=== PATIENT | male | born 1950 | race Caucasian/White ===

== ENCOUNTER 2017-03-23 06:49 | Inpatient (IN) | payer MEDICARE, BC, OTHER ==
[~2017-03-23] VITALS: Ht 170.2 cm; Wt 110.8 kg
[2017-03-23] MEDS ORDERED: MORPHINE SULFATE 4 MG/ML DISP.SYRIN. IV ONE ×2 (08:00→09:30)
[2017-03-23] MEDS ORDERED: KETOROLAC 30 MG/ML INJ. IV ONE (08:00)
[2017-03-23] MEDS ORDERED: methylPREDNISolone 4 MG TABLET. PO SCH ×3 (09:00→12:30)
--- NOTE | 2017-03-23 09:52 | PHYS DOC ---
Past Medical History Past Medical History: Other Additional Past Medical Histor: Chronic back pain,R)thumb fx and set. Past Surgical History: Other Additional Past Surgical Histo: Face reconstruction,Umb.hernia,facial preCA sites removed,Cysts on back. Alcohol Use: None Drug Use: None Adult General Chief Complaint Chief Complaint: BACK PAIN - NO INJURY HPI HPI Patient is a 67 year old presents with exacerbation of chronic back pain. is located than right. Pain is located primarily in the paralumbar region and radiates anteriorly to above the right knee. It is associated with painful gait but not motor weakness or loss of sensation, loss of bowel or bladder function.Patient's has been relatively well controlled with ibuprofen until 3 days ago when escalated significantly. He has required use or a cane or walker to get and is unable to stand walk more than 1-2 minutes at a time. She has had an extensive outpatient workup including recent MRI of his lumbar spine performed at [facility] in [place] and was evaluated by pipe bowl paint trimmer at [facility] and is awaiting an a appointment date for a scheduled epidural steroid injection. No other acute symptoms or complaints. Patient did arrive by ambulance. He was given 100 g of fentanyl on route.Patient is accompanied by spouse at bedside Review of Systems Review of Systems All other systems were reviewed and found to be within normal limits, except as documented in this note. Current Medications Current Medications Current Medications Medications (Trade) Dose Ordered Sig/Alex Start Time Stop Time Status Last Admin Dose Admin Ketorolac Tromethamine (Toradol) 30 mg 1X ONCE 03/23/17 08:00 03/23/17 08:01 DC 03/23/17 08:08 30 MG Morphine Sulfate 2 mg 1X ONCE 03/23/17 09:30 03/23/17 09:31 DC Allergies Allergies Allergies Coded Allergies Type Severity Reaction Last Updated Verified No Known Drug Allergies 03/23/17 No Physical Exam Physical Exam Constitutional: Well developed, well nourished, moderate distress secondary pain [] HENT: Normocephalic, atraumatic, bilateral external ears normal, oropharynx moist, no oral exudates, nose normal. [] Eyes: PERRLA, EOMI, conjunctiva normal, no discharge. [] Neck: Normal range of motion, no tenderness, supple, no stridor. [] Cardiovascular:Heart rate regular rhythm, no murmur [] Lungs & Thorax: Bilateral breath sounds clear to auscultation [] Abdomen: Bowel sounds normal, soft, no tenderness Back: No midline bony pain, swelling or bruising. Diffuse right lumbar back pain. [] Extremities: No tenderness, no cyanosis, no clubbing, ROM intact, no edema. [] Neurologic: Alert and oriented X 3,extremities, no motor weakness or loss of sensation appreciated. limited testing on right secondary to pain. Negative SLR tests. Current Patient Data Vital Signs Vital Signs Date Time Temp Pulse Resp B/P (MAP) Pulse Ox O2 Delivery O2 Flow Rate FiO2 03/23/17 08:06 14 97 Room Air 03/23/17 07:50 71 162/79 (106) 03/23/17 07:26 98.0 98.0 EKG EKG [] Radiology/Procedures Radiology/Procedures [] Course & Med Decision Making Course & Med Decision Making Pertinent Labs and Imaging studies reviewed. (See chart for details) [Intractable low back pain with radiculopathy. No motor deficits appreciated on exam. Outpatient MRI studies requested and are pending.patient requiring multiple of narcotic pain medications to control pain. Patient is not currently safe to discharge home due to concern of ability care for himself, fallen personal safety. Therefore the patient will be admitted to the hospitalist service with anticipated pain management consult.] Dragon Disclaimer Dragon Disclaimer This electronic medical record was generated, in whole or in part, using a voice recognition dictation system. Departure Departure Impression: Primary Impression: Intractable back pain Disposition: ADMITTED INPATIENT Admitting Physician: Other (Dr. Orr) Referrals: FELICIA REYES MD (PCP) CAMERON RAMIREZ DO Mar 23, 2017 09:52
[2017-03-23] MEDS ORDERED: ONDANSETRON PF 4 MG/2 ML VIAL. IV PRN (10:00)
[2017-03-23 10:22] LABS: BASO # 0.1 x10^3/uL (0.0-0.2); BASO % 1 % (0-3); EOS % 0 % (0-3); HEMATOCRIT 45.9 % (39.0-53.0); HEMOGLOBIN 15.5 g/dL (13.0-17.5); LYMPH # 1.3 x10^3/uL (1.0-4.8); LYMPH % 14 % (24-48); MEAN CORPUSCULAR HEMOGLOBIN 29 pg (25-35); MEAN CORPUSCULAR HGB CONC 34 g/dL (31-37); MEAN CORPUSCULAR VOLUME 86 fL (79-100); MONO % 9 % (0-9); NEUT % 76 % (31-73); PLATELET COUNT 186 x10^3/uL (140-400); RED BLOOD COUNT 5.37 x10^6/uL (4.30-5.70); RED CELL DISTRIBUTION WIDTH 14.8 % (11.5-14.5); WHITE BLOOD COUNT 9.7 x10^3/uL (4.0-11.0)
[2017-03-23 10:30] LABS: CALCIUM 9.3 mg/dL (8.5-10.1); CREATININE 0.6 mg/dL (0.7-1.3)
[2017-03-23 10:36] LABS: ALBUMIN 3.3 g/dL (3.4-5.0); ALBUMIN/GLOBULIN RATIO 0.8 (1.0-1.7); TOTAL BILIRUBIN 0.5 mg/dL (0.2-1.0); TOTAL PROTEIN 7.4 g/dL (6.4-8.2)
[2017-03-23 11:15] VITALS: BP 156/73
[2017-03-23] MEDS ORDERED: CHOL100013 PO (12:45)
[2017-03-23] MEDS ORDERED: GLUC100018 PO (12:45)
[2017-03-23] MEDS ORDERED: KETOROLAC 30 MG/ML INJ. IV PRN (13:45)
[2017-03-23] MEDS: CHOLECALCIFEROL (VITAMIN D3) 1,000 UNIT TABLET PO SCH (14:20)
[2017-03-23 15:00] VITALS: BP 148/70
[2017-03-23] MEDS: MORPHINE SULFATE 4 MG/ML DISP.SYRIN. IV PRN ×2 (15:43→22:39)
[2017-03-23 19:00] VITALS: BP 163/83
[2017-03-23] MEDS: PANTOPRAZOLE 40 MG TABLET.DR. PO SCH (19:00)
[2017-03-23] MEDS: GABAPENTIN 300 MG CAPSULE. PO SCH (20:18)
[2017-03-23] MEDS: oxyCODONE/APAP 10/325 1 TAB TABLET PO PRN (20:18)
[2017-03-23] MEDS: methylPREDNISolone 4 MG TABLET. PO SCH ×2 (20:19→22:43)
--- NOTE | 2017-03-23 21:51 | HP ---
ADMIT DATE: 03/23/2017 CHIEF COMPLAINT: Lower back pain with radiation into right leg. HISTORY OF PRESENT ILLNESS: The patient is a 67-year-old morbidly obese gentleman who presented to the Emergency Room with acute on chronic lower back pain. He relates that he has had issues for years. He sustained a fall in December, which actually brought on severe pain for which he had seen an orthopedic surgeon and had been prescribed physical therapy, which he had had for about 12 sessions. More acutely, about 3-4 days ago, his back pain once again became very severe. Nothing has seemed to help. He typically takes Motrin, did not do the trick this time and he decided to come to the Emergency Room. Of note, he actually had been seen by his orthopedist just a couple weeks ago and had been recommended to receive injections which at the time, he declined as he felt it was not that severe. PAST MEDICAL HISTORY: Chronic back pain as above. No medical issues. FAMILY HISTORY: No medical problems known to him. SOCIAL HISTORY: Lives with his . No toxic habits. ALLERGIES: No known drug allergies. MEDICATIONS: MAR reconciled with home medications. REVIEW OF SYSTEMS: Positive for back pain as above. Radiation with burning sensation into his groin and anterior thigh to knee. Rest of organ system review is negative. PHYSICAL EXAMINATION: VITAL SIGNS: Show blood pressure of 156/73, heart rate of 74, respiratory rate at 20. He is afebrile. GENERAL: This is a massively obese, 67-year-old gentleman, awake, alert, in mild distress, lying on his side as this seems most comfortable to him. HEENT: Shows no scleral icterus. NECK: Supple. LUNGS: Clear to auscultation bilaterally. HEART: Regular rate and rhythm. ABDOMEN: Has positive bowel sounds, obese. Organs could not be palpated. EXTREMITIES: Show no edema. He can move all extremities, albeit with pain in the right lower extremity. LABORATORY DATA: CBC with a WBC of 9.7, hemoglobin 15.5, platelets of 186. Chemistries with a BUN and creatinine of 17 and 0.6. Normal electrolytes and normal LFTs. Glucose at 111. ASSESSMENT AND PLAN: The patient is a 67-year-old gentleman with suspected nerve root compression and resultant sciatica. MRI of the spine will be obtained for elucidation. Dr. Lennon has been consulted, await further input. In the meantime, we will treat him symptomatically with pain medications. He has IV morphine and Toradol as well as oxycodone available. Adjunct ice therapy as well. We will add muscle relaxants to his regimen as well. CHASE NATH MD DR: UR/nts JOB#: [id number] / [id number] CHARISSE
[2017-03-23 23:00] VITALS: BP 135/76
[2017-03-24 03:50] VITALS: BP 134/61
[2017-03-24] MEDS: oxyCODONE/APAP 10/325 1 TAB TABLET PO PRN ×2 (04:25→09:26)
--- NOTE | 2017-03-24 04:43 | CONS ---
DATE OF CONSULTATION: 03/23/2017 LOCATION: He is in room 569. I saw him at the request of Dr. Mack for rehab evaluation about his back pain. HISTORY OF PRESENT ILLNESS: This is a 67-year-old male with chronic back pain, usually goes to a chiropractor. He started having increasing lower back pain after a fall in December of this year, had gone through physical therapy with some help, had an MRI scan done and he was referred to the pain clinic for consideration of lumbar epidural steroid injection, but he did not go to as he admits the pain at that time is only 07/18. The patient started having increasing back pain starting on 03/20/2017, after he picked up heavy box. The patient admits burning pain over right thigh anterior lateral aspect. He admits lower back pain is radiating to his right lower extremity. The patient had taken ibuprofen 400 mg couple of times a day without much help. Patient denies any trouble with his bowel or bladder control, but admits having difficulty to get up and walk. He required a cane or walker to get up, unable to walk for more than 1 or 2 minutes at a time. ALLERGIES: The patient is not known allergic to any medication. PAST MEDICAL HISTORY: Includes peripheral neuropathy. 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 The patient is retired. He lives with his family in [facility], had stairs to manage and he has been independent with his mobility and self-care skills prior to the present exacerbation of his lower back pain about 3 days ago. PHYSICAL EXAMINATION: Today, revealed a middle-aged male. He is alert, oriented to time, place, person, and circumstance, in moderate distress. He is having tenderness to palpation over lower thoracic and lumbar paraspinal muscles extending over to sacroiliac joint area, mainly on the right side. Straight leg raising test is negative bilaterally. He had pain free range of motion of all four extremity joints, some tightness of heel cords bilaterally. He had relative weakness of dorsiflexor muscles of both feet and toes. Deep tendon reflexes are 1+ at right knee, absent at left knee and both ankles. He had slight degree of hyperesthesia to touch over right lateral femoral cutaneous nerve distribution. Negative Tinel sign over right lateral femoral cutaneous nerve at the inguinal ligament area. He is independent, rolling from side to side. I have not tested his transfers or ambulation skills at this time, but nursing staff noted him walking to the bathroom. His skin is intact at this time. 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 He has slight tightening of heel cords bilaterally. The patient is obese. RECOMMENDATION: To start him on Medrol Dosepak and muscle relaxant medications and gabapentin to help with his right thigh dysesthesia. To obtain MRI scan of his lumbar vertebrae to determine any new disk herniation and to ask physical therapy to see him to consider trigger point injections or refer to pain clinic for consideration of lumbar epidural steroid injection if the pain persists. Dr. Mack, I appreciate asking me to participate in the care of this interesting patient. I will be glad to follow him with you as needed for his rehabilitation. LEOPOLDO MCNEILL MD DR: ARON/bjorn JOB#: [id number] / [id number]
[2017-03-24 06:27] LABS: BASO % 0 % (0-3); EOS % 0 % (0-3); HEMATOCRIT 46.1 % (39.0-53.0); HEMOGLOBIN 15.6 g/dL (13.0-17.5); LYMPH # 1.2 x10^3/uL (1.0-4.8); LYMPH % 14 % (24-48); MEAN CORPUSCULAR HEMOGLOBIN 29 pg (25-35); MEAN CORPUSCULAR HGB CONC 34 g/dL (31-37); MEAN CORPUSCULAR VOLUME 86 fL (79-100); MONO % 7 % (0-9); NEUT % 79 % (31-73); PLATELET COUNT 192 x10^3/uL (140-400); RED BLOOD COUNT 5.34 x10^6/uL (4.30-5.70); RED CELL DISTRIBUTION WIDTH 14.9 % (11.5-14.5); WHITE BLOOD COUNT 8.4 x10^3/uL (4.0-11.0)
[2017-03-24 06:49] LABS: CALCIUM 9.1 mg/dL (8.5-10.1); CREATININE 0.7 mg/dL (0.7-1.3); GFR 112.1; POTASSIUM 4.3 mmol/L (3.5-5.1)
[2017-03-24 07:00] VITALS: BP 110/66
[2017-03-24] MEDS: PANTOPRAZOLE 40 MG TABLET.DR. PO SCH (08:23)
[2017-03-24] MEDS: GABAPENTIN 300 MG CAPSULE. PO SCH ×3 (08:23→22:41)
[2017-03-24] MEDS: methylPREDNISolone 4 MG TABLET. PO SCH ×3 (08:23→17:05)
[2017-03-24] MEDS: CHOLECALCIFEROL (VITAMIN D3) 1,000 UNIT TABLET PO SCH (08:23)
[2017-03-24] MEDS ORDERED: methylPREDNISolone 4 MG TABLET. PO SCH ×3 (08:30→21:00)
[2017-03-24] MEDS ORDERED: NON FORMULARY ITEM (Glucosamine Sulfate 2KCL (Glucosamine) 1,000 MG) PO SCH (09:00)
[2017-03-24] MEDS ORDERED: diazePAM 5 MG TABLET PO ONE (09:00)
--- NOTE | 2017-03-24 09:42 | PDOC ---
PROGRESS NOTES Subjective Subjective He feels better. Objective Objective Vital Signs Date Time Temp Pulse Resp B/P (MAP) Pulse Ox O2 Delivery O2 Flow Rate FiO2 03/24/17 09:26 20 Room Air 03/24/17 07:00 98.2 68 110/66 (81) 96 98.2 Intake and Output 03/24/17 07:00 Intake Total 1600 ml Balance 1600 ml Intake Oral 1600 ml # Voids 3 Physical Exam Physical Exam He is alert and in no acute distress but continues with tenderness to palpation over right sacroiliac joint and adjoining lumbar paraspinal muscles and painfully limited lumbar spine ROM. Assessment Assessment Problems Medical Problems: (1) Intractable back pain Status: Acute Plan Plan of Care To await mri scan and physical therapy to see him and to consider trigger point injections or lumbar RIVERA if his pain persists and interfering with is mobility. Comment Review of Relevant I have reviewed the following items erin (where applicable) has been applied. Labs Laboratory Tests Test 03/23/17 10:10 03/24/17 05:25 03/24/17 08:20 White Blood Count 9.7 x10^3/uL (4.0-11.0) 8.4 x10^3/uL (4.0-11.0) Red Blood Count 5.37 x10^6/uL (4.30-5.70) 5.34 x10^6/uL (4.30-5.70) Hemoglobin 15.5 g/dL (13.0-17.5) 15.6 g/dL (13.0-17.5) Hematocrit 45.9 % (39.0-53.0) 46.1 % (39.0-53.0) Mean Corpuscular Volume 86 fL (79-100) 86 fL (79-100) Mean Corpuscular Hemoglobin 29 pg (25-35) 29 pg (25-35) Mean Corpuscular Hemoglobin Concent 34 g/dL (31-37) 34 g/dL (31-37) Red Cell Distribution Width 14.8 % (11.5-14.5) 14.9 % (11.5-14.5) Platelet Count 186 x10^3/uL (140-400) 192 x10^3/uL (140-400) Neutrophils (%) (Auto) 76 % (31-73) 79 % (31-73) Lymphocytes (%) (Auto) 14 % (24-48) 14 % (24-48) Monocytes (%) (Auto) 9 % (0-9) 7 % (0-9) Eosinophils (%) (Auto) 0 % (0-3) 0 % (0-3) Basophils (%) (Auto) 1 % (0-3) 0 % (0-3) Neutrophils # (Auto) 7.4 x10^3uL (1.8-7.7) 6.6 x10^3uL (1.8-7.7) Lymphocytes # (Auto) 1.3 x10^3/uL (1.0-4.8) 1.2 x10^3/uL (1.0-4.8) Monocytes # (Auto) 0.9 x10^3/uL (0.0-1.1) 0.6 x10^3/uL (0.0-1.1) Eosinophils # (Auto) 0.0 x10^3/uL (0.0-0.7) 0.0 x10^3/uL (0.0-0.7) Basophils # (Auto) 0.1 x10^3/uL (0.0-0.2) 0.0 x10^3/uL (0.0-0.2) Sodium Level 137 mmol/L (136-145) 139 mmol/L (136-145) Potassium Level 4.0 mmol/L (3.5-5.1) 4.3 mmol/L (3.5-5.1) Chloride Level 106 mmol/L (98-107) 104 mmol/L (98-107) Carbon Dioxide Level 27 mmol/L (21-32) 26 mmol/L (21-32) Anion Gap 4 (6-14) 9 (6-14) Blood Urea Nitrogen 17 mg/dL (8-26) 18 mg/dL (8-26) Creatinine 0.6 mg/dL (0.7-1.3) 0.7 mg/dL (0.7-1.3) Estimated GFR (Cockcroft-Gault) 134.0 112.1 BUN/Creatinine Ratio 28 (6-20) Glucose Level 111 mg/dL (70-99) 123 mg/dL (70-99) Calcium Level 9.3 mg/dL (8.5-10.1) 9.1 mg/dL (8.5-10.1) Total Bilirubin 0.5 mg/dL (0.2-1.0) Aspartate Amino Transf (AST/SGOT) 25 U/L (15-37) Alanine Aminotransferase (ALT/SGPT) 42 U/L (16-63) Alkaline Phosphatase 69 U/L (46-116) Total Protein 7.4 g/dL (6.4-8.2) Albumin 3.3 g/dL (3.4-5.0) Albumin/Globulin Ratio 0.8 (1.0-1.7) Glucose (Fingerstick) 160 mg/dL (70-99) Laboratory Tests Test 03/23/17 10:10 03/24/17 05:25 03/24/17 08:20 White Blood Count 9.7 x10^3/uL (4.0-11.0) 8.4 x10^3/uL (4.0-11.0) Red Blood Count 5.37 x10^6/uL (4.30-5.70) 5.34 x10^6/uL (4.30-5.70) Hemoglobin 15.5 g/dL (13.0-17.5) 15.6 g/dL (13.0-17.5) Hematocrit 45.9 % (39.0-53.0) 46.1 % (39.0-53.0) Mean Corpuscular Volume 86 fL (79-100) 86 fL (79-100) Mean Corpuscular Hemoglobin 29 pg (25-35) 29 pg (25-35) Mean Corpuscular Hemoglobin Concent 34 g/dL (31-37) 34 g/dL (31-37) Red Cell Distribution Width 14.8 % (11.5-14.5) 14.9 % (11.5-14.5) Platelet Count 186 x10^3/uL (140-400) 192 x10^3/uL (140-400) Neutrophils (%) (Auto) 76 % (31-73) 79 % (31-73) Lymphocytes (%) (Auto) 14 % (24-48) 14 % (24-48) Monocytes (%) (Auto) 9 % (0-9) 7 % (0-9) Eosinophils (%) (Auto) 0 % (0-3) 0 % (0-3) Basophils (%) (Auto) 1 % (0-3) 0 % (0-3) Neutrophils # (Auto) 7.4 x10^3uL (1.8-7.7) 6.6 x10^3uL (1.8-7.7) Lymphocytes # (Auto) 1.3 x10^3/uL (1.0-4.8) 1.2 x10^3/uL (1.0-4.8) Monocytes # (Auto) 0.9 x10^3/uL (0.0-1.1) 0.6 x10^3/uL (0.0-1.1) Eosinophils # (Auto) 0.0 x10^3/uL (0.0-0.7) 0.0 x10^3/uL (0.0-0.7) Basophils # (Auto) 0.1 x10^3/uL (0.0-0.2) 0.0 x10^3/uL (0.0-0.2) Sodium Level 137 mmol/L (136-145) 139 mmol/L (136-145) Potassium Level 4.0 mmol/L (3.5-5.1) 4.3 mmol/L (3.5-5.1) Chloride Level 106 mmol/L (98-107) 104 mmol/L (98-107) Carbon Dioxide Level 27 mmol/L (21-32) 26 mmol/L (21-32) Anion Gap 4 (6-14) 9 (6-14) Blood Urea Nitrogen 17 mg/dL (8-26) 18 mg/dL (8-26) Creatinine 0.6 mg/dL (0.7-1.3) 0.7 mg/dL (0.7-1.3) Estimated GFR (Cockcroft-Gault) 134.0 112.1 BUN/Creatinine Ratio 28 (6-20) Glucose Level 111 mg/dL (70-99) 123 mg/dL (70-99) Calcium Level 9.3 mg/dL (8.5-10.1) 9.1 mg/dL (8.5-10.1) Total Bilirubin 0.5 mg/dL (0.2-1.0) Aspartate Amino Transf (AST/SGOT) 25 U/L (15-37) Alanine Aminotransferase (ALT/SGPT) 42 U/L (16-63) Alkaline Phosphatase 69 U/L (46-116) Total Protein 7.4 g/dL (6.4-8.2) Albumin 3.3 g/dL (3.4-5.0) Albumin/Globulin Ratio 0.8 (1.0-1.7) Glucose (Fingerstick) 160 mg/dL (70-99) Medications Current Medications Morphine Sulfate 4 mg 1X ONCE IV Last administered on 03/23/17 08:06; Start 03/23/17 at 08:00; Stop 03/23/17 at 08:01; Status DC Ketorolac Tromethamine (Toradol) 30 mg 1X ONCE IV Last administered on 08:08; Start 03/23/17 at 08:00; Stop 03/23/17 at 08:01; Status DC Morphine Sulfate 2 mg 1X ONCE IV Last administered on 03/23/17 10:08; Start 03/23/17 at 09:30; Stop 03/23/17 at 09:31; Status DC Ondansetron HCl (Zofran) 4 mg PRN Q8HRS PRN IV NAUSEA/VOMITING; Start at 10:00; Stop 03/24/17 at 09:59 Morphine Sulfate 2 mg PRN Q2HR PRN IV PAIN Last administered on 03/23/17 22: 39; Start 03/23/17 at 10:00; Stop 03/24/17 at 09:59 Vitamin D (Vitamin D3) 1,000 unit DAILY PO Last administered on 03/24/17 08: 23; Start 03/23/17 at 14:30 Non-Formulary Medication 1,000 mg DAILY PO ; Start 03/24/17 at 09:00; Status UNV Ketorolac Tromethamine (Toradol) 30 mg PRN Q6HRS PRN IV PAIN Last administered on 03/23/17 14:19; Start 03/23/17 at 13:45; Stop 03/28/17 at 13:44 Oxycodone/ Acetaminophen (Percocet 5/325) 1 tab PRN Q4HRS PRN PO PAIN 5-7; Start 03/23/17 at 14:30 Oxycodone/ Acetaminophen (Percocet 10/325) 1 tab PRN Q4HRS PRN PO pain 8-10 Last administered on 03/24/17 09:26; Start 03/23/17 at 14:30 Cyclobenzaprine HCl (Flexeril) 10 mg Q6HRS PO ; Start 03/24/17 at 19:00 Gabapentin (Neurontin) 300 mg TID PO Last administered on 03/24/17 08:23; Start 03/23/17 at 21:00 Methylprednisolone (Medrol) 8 mg BID PO ; Start 03/23/17 at 09:00; Stop at 21:01; Status UNV Methylprednisolone (Medrol) 4 mg BIDPCLD PO ; Start 03/23/17 at 12:30; Stop at 17:31; Status UNV Methylprednisolone (Medrol) 4 mg TIDPC PO ; Start 03/24/17 at 08:30; Stop at 17:31; Status UNV Methylprednisolone (Medrol) 8 mg QHS PO ; Start 03/24/17 at 21:00; Stop at 21:01; Status UNV Methylprednisolone (Medrol) 4 mg QIDAFTMEAL PO ; Start 03/25/17 at 09:00; Stop 03/25/17 at 21:01; Status UNV Methylprednisolone (Medrol) 4 mg TID PO ; Start 03/26/17 at 09:00; Stop at 21:01; Status UNV Methylprednisolone (Medrol) 4 mg BID PO ; Start 03/27/17 at 09:00; Stop at 21:01; Status UNV Methylprednisolone (Medrol) 4 mg DAILY PO ; Start 03/28/17 at 09:00; Stop at 09:01; Status UNV Pantoprazole Sodium (Protonix) 40 mg DAILYAC PO Last administered on 08:23; Start 03/23/17 at 19:00 Diazepam (Valium) 5 mg 1X ONCE PO ; Start 03/24/17 at 09:00; Stop 03/24/17 at 09:01; Status DC Methylprednisolone (Medrol) 12 mg Q4H PO Last administered on 11/13/17at 22:43 ; Start 03/23/17 at 19:00; Stop 03/23/17 at 23:01; Status DC Methylprednisolone (Medrol) BIDPCLD PO ; Start 03/23/17 at 12:30; Stop at 17:31; Status UNV Methylprednisolone (Medrol) 4 mg TIDPC PO Last administered on 03/24/17t 08:23 ; Start 03/24/17 at 08:30; Stop 03/24/17 at 17:31 Methylprednisolone (Medrol) 8 mg QHS PO ; Start 03/24/17 at 21:00; Stop at 21:01 Methylprednisolone (Medrol) 4 mg QIDAFTMEAL PO ; Start 03/25/17 at 09:00; Stop 03/25/17 at 21:01 Methylprednisolone (Medrol) 4 mg TID PO ; Start 03/26/17 at 09:00; Stop at 21:01 Methylprednisolone (Medrol) 4 mg BID PO ; Start 03/27/17 at 09:00; Stop at 21:01 Methylprednisolone (Medrol) 4 mg DAILY PO ; Start 03/28/17 at 09:00; Stop at 09:01 Active Scripts Active Reported Glucosamine (Glucosamine Sulfate 2KCL) 1,000 Mg Tablet 1,000 Mg PO DAILY Vitamin D (Cholecalciferol (Vitamin D3)) 1,000 Unit Capsule 1 Cap PO DAILY Vitals/I & O Vital Sign - Last 24 Hours 03/23/17 03/23/17 03/23/17 03/23/17 10:08 10:15 10:22 10:52 Pulse 60 56 56 Resp 18 15 15 18 B/P (MAP) 169/77 (107) 147/72 (97) 142/71 (94) Pulse Ox 96 94 96 97 O2 Delivery Room Air Room Air Room Air Room Air 03/23/17 03/23/17 03/23/17 03/23/17 11:08 11:15 11:50 15:00 Temp 96.3 98.9 96.3 98.9 Pulse 74 76 Resp 18 20 20 B/P (MAP) 156/73 (100) 148/70 (96) Pulse Ox 96 96 96 O2 Delivery Room Air Room Air Room Air Room Air 11/13/03/23/17 03/23/17 03/23/17 15:43 16:13 19:00 20:05 Temp 97.8 97.8 Pulse 67 Resp 20 18 20 B/P (MAP) 163/83 (109) Pulse Ox 96 O2 Delivery Room Air Room Air Room Air Room Air 03/23/17 03/23/17 03/23/17 03/23/17 20:18 21:18 22:39 23:00 Temp 97.9 97.9 Pulse 63 Resp 18 19 20 20 B/P (MAP) 135/76 (95) Pulse Ox 96 O2 Delivery Room Air Room Air Room Air Room Air 03/24/17 03/24/17 03/24/17 03/24/17 03:50 04:25 07:00 09:26 Temp 97.9 98.2 97.9 98.2 Pulse 72 68 Resp 14 22 20 20 B/P (MAP) 134/61 (85) 110/66 (81) Pulse Ox 93 96 O2 Delivery Room Air Room Air Room Air Room Air Intake and Output 03/23/17 03/23/17 03/24/17 15:00 23:00 07:00 Intake Total 300 ml 1100 ml 200 ml Balance 300 ml 1100 ml 200 ml LEOPOLDO MCNEILL MD Mar 24, 2017 09:42
--- NOTE | 2017-03-24 09:53 | PDOC ---
PROGRESS NOTES Chief Complaint Chief Complaint Intractable back pain ASSESSMENT AND PLAN: 1. LBP: awaiting MRI; appreciate Dr Lennon's input. steroids added. 2. Morbid obesity: nutrition consult History of Present Illness History of Present Illness no pain at rest, but still sharp wit movement Vitals Vitals Vital Signs Date Time Temp Pulse Resp B/P (MAP) Pulse Ox O2 Delivery O2 Flow Rate FiO2 03/24/17 09:26 20 Room Air 03/24/17 07:00 98.2 68 110/66 (81) 96 98.2 Physical Exam General: Alert, Cooperative, No acute distress Heart: Regular rate Lungs: Clear Abdomen: Normal bowel sounds, Other Extremities: No edema Skin: No rashes Labs LABS Laboratory Tests Test 03/23/17 10:10 03/24/17 05:25 03/24/17 08:20 White Blood Count 9.7 x10^3/uL (4.0-11.0) 8.4 x10^3/uL (4.0-11.0) Red Blood Count 5.37 x10^6/uL (4.30-5.70) 5.34 x10^6/uL (4.30-5.70) Hemoglobin 15.5 g/dL (13.0-17.5) 15.6 g/dL (13.0-17.5) Hematocrit 45.9 % (39.0-53.0) 46.1 % (39.0-53.0) Mean Corpuscular Volume 86 fL (79-100) 86 fL (79-100) Mean Corpuscular Hemoglobin 29 pg (25-35) 29 pg (25-35) Mean Corpuscular Hemoglobin Concent 34 g/dL (31-37) 34 g/dL (31-37) Red Cell Distribution Width 14.8 % (11.5-14.5) 14.9 % (11.5-14.5) Platelet Count 186 x10^3/uL (140-400) 192 x10^3/uL (140-400) Neutrophils (%) (Auto) 76 % (31-73) 79 % (31-73) Lymphocytes (%) (Auto) 14 % (24-48) 14 % (24-48) Monocytes (%) (Auto) 9 % (0-9) 7 % (0-9) Eosinophils (%) (Auto) 0 % (0-3) 0 % (0-3) Basophils (%) (Auto) 1 % (0-3) 0 % (0-3) Neutrophils # (Auto) 7.4 x10^3uL (1.8-7.7) 6.6 x10^3uL (1.8-7.7) Lymphocytes # (Auto) 1.3 x10^3/uL (1.0-4.8) 1.2 x10^3/uL (1.0-4.8) Monocytes # (Auto) 0.9 x10^3/uL (0.0-1.1) 0.6 x10^3/uL (0.0-1.1) Eosinophils # (Auto) 0.0 x10^3/uL (0.0-0.7) 0.0 x10^3/uL (0.0-0.7) Basophils # (Auto) 0.1 x10^3/uL (0.0-0.2) 0.0 x10^3/uL (0.0-0.2) Sodium Level 137 mmol/L (136-145) 139 mmol/L (136-145) Potassium Level 4.0 mmol/L (3.5-5.1) 4.3 mmol/L (3.5-5.1) Chloride Level 106 mmol/L (98-107) 104 mmol/L (98-107) Carbon Dioxide Level 27 mmol/L (21-32) 26 mmol/L (21-32) Anion Gap 4 (6-14) 9 (6-14) Blood Urea Nitrogen 17 mg/dL (8-26) 18 mg/dL (8-26) Creatinine 0.6 mg/dL (0.7-1.3) 0.7 mg/dL (0.7-1.3) Estimated GFR (Cockcroft-Gault) 134.0 112.1 BUN/Creatinine Ratio 28 (6-20) Glucose Level 111 mg/dL (70-99) 123 mg/dL (70-99) Calcium Level 9.3 mg/dL (8.5-10.1) 9.1 mg/dL (8.5-10.1) Total Bilirubin 0.5 mg/dL (0.2-1.0) Aspartate Amino Transf (AST/SGOT) 25 U/L (15-37) Alanine Aminotransferase (ALT/SGPT) 42 U/L (16-63) Alkaline Phosphatase 69 U/L (46-116) Total Protein 7.4 g/dL (6.4-8.2) Albumin 3.3 g/dL (3.4-5.0) Albumin/Globulin Ratio 0.8 (1.0-1.7) Glucose (Fingerstick) 160 mg/dL (70-99) CHASE NATH MD Mar 24, 2017 09:53
[2017-03-24 11:00] VITALS: BP 110/67
[2017-03-24] MEDS: oxyCODONE/APAP 5/325 1 TAB TABLET PO PRN ×3 (13:48→20:01)
[2017-03-24 15:00] VITALS: BP 112/69
--- NOTE | 2017-03-24 15:31 | RAD ---
MRI Lumbar Spine without contrast History: Severe back pain with right leg radiculopathy, fall 8 months ago Technique: Multiplanar, multi sequential noncontrast MR imaging was performed of the lumbar spine. Contrast: None Comparison: None Findings: Lumbar vertebral body stature is overall maintained. There is grade 1 anterior spondylolisthesis at L5-S1. There is moderate to severe degenerative disc disease at L2-3 and to a lesser degree at T12-L1 and minimally at L4-5 and L5-S1. There is degenerative endplate change L2-3 and T12-L1. There is no significant marrow edema. There is mild lumbar levoscoliosis. Conus terminates at L1. There are Schmorl's nodes inferiorly of L4 and also at T12-L1. Not included the axial images, there is shallow posterior bulge/protrusion at T12-L1 without significant spinal stenosis. L1-L2: Spinal canal and the neural foramina are adequate. L2-3: There is disc osteophyte complex and bulge. There is mild to moderate buckling of the ligamentum flavum greater on the right minimal facet degenerative change. There is prominence of posterior epidural fat. Combination of findings results in moderate spinal stenosis with right greater than left lateral recess stenosis. There is [id number] left and moderate to severe right neural foramina compromise. L3-L4: There is [id number] facet degenerative change and buckling of the ligamentum flavum. There is broad posterior bulge. Combination of findings results in moderate to severe spinal stenosis with limited preserved subarachnoid space, lateral recess stenosis bilaterally. There is mild left and moderate right neural foramina compromise, extraforaminal disc osteophyte complex and protrusion near the extraforaminal right L3 nerve root without significant displacement. L4-L5: There is mild buckling of the ligamentum flavum and [id number] facet degenerative change. There is minimal narrowing of the far left lateral recess. There is minimal disc osteophyte complex and bulge. Right neural foramen is adequate. There is moderate to severe narrowing of the left neural foramen in part from disc osteophyte complex and facet degenerative change, contact of the exiting left L4 nerve root. L5-S1: There is severe facet hypertrophic change and mild buckling of the ligamentum flavum. Spinal canal is adequate. There is protrusion and small extrusion extending slightly above the intervertebral disc space in the inferior left neural foramen. There is fairly severe narrowing left neural foramen with impingement of the exiting left L5 nerve root. There is moderate narrowing of the right neural foramen with contact exiting right L5 nerve root. Impression: 1. There is moderate to severe spinal stenosis L3-4, moderate spinal stenosis at L2-3. 2. There is neural foramina compromise as stated, more significant narrowing on the left at L5-S1, L4-5, and L2-3, somewhat lesser degree of narrowing on the right at L5-S1, L3-4, and L2-3. 3. There is degenerative disc disease greatest at L2-3. 4. There is is multilevel facet degenerative change, very mild grade 1 anterior spondylolisthesis at L5-S1. Electronically signed by: Cristobal Vallejo MD (03/24/2017 3:28 PM) [id number]
[2017-03-24] MEDS: CYCLOBENZAPRINE 10 MG TABLET. PO SCH (18:41)
[2017-03-24 19:00] VITALS: BP 141/72
[2017-03-24 23:00] VITALS: BP 135/64
[2017-03-25 03:00] VITALS: BP 125/88
[2017-03-25] MEDS: CYCLOBENZAPRINE 10 MG TABLET. PO SCH ×4 (04:06→17:22)
[2017-03-25] MEDS: oxyCODONE/APAP 10/325 1 TAB TABLET PO PRN ×3 (04:07→17:22)
[2017-03-25 07:00] VITALS: BP 151/91
[2017-03-25] MEDS: methylPREDNISolone 4 MG TABLET. PO SCH ×4 (08:34→21:11)
[2017-03-25] MEDS: CHOLECALCIFEROL (VITAMIN D3) 1,000 UNIT TABLET PO SCH (08:34)
[2017-03-25] MEDS: PANTOPRAZOLE 40 MG TABLET.DR. PO SCH (08:34)
[2017-03-25] MEDS: GABAPENTIN 300 MG CAPSULE. PO SCH ×3 (08:34→21:11)
[2017-03-25] MEDS: oxyCODONE/APAP 5/325 1 TAB TABLET PO PRN ×2 (08:35→14:30)
[2017-03-25] MEDS ORDERED: methylPREDNISolone 4 MG TABLET. PO SCH (09:00)
--- NOTE | 2017-03-25 10:11 | PDOC ---
PROGRESS NOTES Subjective Subjective He admits some easing of back pain but continues with right lumbar radicular pain Objective Objective Vital Signs Date Time Temp Pulse Resp B/P (MAP) Pulse Ox O2 Delivery O2 Flow Rate FiO2 03/25/17 08:35 20 Room Air 03/25/17 07:00 97.6 57 151/91 (111) 93 97.6 Intake and Output 03/25/17 07:00 Intake Total 1990 ml Output Total 600 ml Balance 1390 ml Intake Oral 1990 ml Output Urine Total 600 ml # Voids 2 Physical Exam Physical Exam He continues to get up and walk with walker and no change noted with his neurological examination and mri scan revealed mult level DDD and DJD with some degree of spondylolisthesis and lumbar central spinal and neural foraminal stenosis to some degree.He is constipated. Assessment Assessment Problems Medical Problems: (1) Intractable back pain Status: Acute Plan Plan of Care To ask for pain clinic for lumbar RIVERA to help ease his pain and also ask for neurosurgical consult while here and hopefully home tomorrow with out patient follow up in pain clinic. Comment Review of Relevant I have reviewed the following items erin (where applicable) has been applied. Labs Laboratory Tests Test 03/23/17 10:10 03/24/17 05:25 03/24/17 08:20 03/25/17 07:57 White Blood Count 9.7 x10^3/uL (4.0-11.0) 8.4 x10^3/uL (4.0-11.0) Red Blood Count 5.37 x10^6/uL (4.30-5.70) 5.34 x10^6/uL (4.30-5.70) Hemoglobin 15.5 g/dL (13.0-17.5) 15.6 g/dL (13.0-17.5) Hematocrit 45.9 % (39.0-53.0) 46.1 % (39.0-53.0) Mean Corpuscular Volume 86 fL (79-100) 86 fL (79-100) Mean Corpuscular Hemoglobin 29 pg (25-35) 29 pg (25-35) Mean Corpuscular Hemoglobin Concent 34 g/dL (31-37) 34 g/dL (31-37) Red Cell Distribution Width 14.8 % (11.5-14.5) 14.9 % (11.5-14.5) Platelet Count 186 x10^3/uL (140-400) 192 x10^3/uL (140-400) Neutrophils (%) (Auto) 76 % (31-73) 79 % (31-73) Lymphocytes (%) (Auto) 14 % (24-48) 14 % (24-48) Monocytes (%) (Auto) 9 % (0-9) 7 % (0-9) Eosinophils (%) (Auto) 0 % (0-3) 0 % (0-3) Basophils (%) (Auto) 1 % (0-3) 0 % (0-3) Neutrophils # (Auto) 7.4 x10^3uL (1.8-7.7) 6.6 x10^3uL (1.8-7.7) Lymphocytes # (Auto) 1.3 x10^3/uL (1.0-4.8) 1.2 x10^3/uL (1.0-4.8) Monocytes # (Auto) 0.9 x10^3/uL (0.0-1.1) 0.6 x10^3/uL (0.0-1.1) Eosinophils # (Auto) 0.0 x10^3/uL (0.0-0.7) 0.0 x10^3/uL (0.0-0.7) Basophils # (Auto) 0.1 x10^3/uL (0.0-0.2) 0.0 x10^3/uL (0.0-0.2) Sodium Level 137 mmol/L (136-145) 139 mmol/L (136-145) Potassium Level 4.0 mmol/L (3.5-5.1) 4.3 mmol/L (3.5-5.1) Chloride Level 106 mmol/L (98-107) 104 mmol/L (98-107) Carbon Dioxide Level 27 mmol/L (21-32) 26 mmol/L (21-32) Anion Gap 4 (6-14) 9 (6-14) Blood Urea Nitrogen 17 mg/dL (8-26) 18 mg/dL (8-26) Creatinine 0.6 mg/dL (0.7-1.3) 0.7 mg/dL (0.7-1.3) Estimated GFR (Cockcroft-Gault) 134.0 112.1 BUN/Creatinine Ratio 28 (6-20) Glucose Level 111 mg/dL (70-99) 123 mg/dL (70-99) Calcium Level 9.3 mg/dL (8.5-10.1) 9.1 mg/dL (8.5-10.1) Total Bilirubin 0.5 mg/dL (0.2-1.0) Aspartate Amino Transf (AST/SGOT) 25 U/L (15-37) Alanine Aminotransferase (ALT/SGPT) 42 U/L (16-63) Alkaline Phosphatase 69 U/L (46-116) Total Protein 7.4 g/dL (6.4-8.2) Albumin 3.3 g/dL (3.4-5.0) Albumin/Globulin Ratio 0.8 (1.0-1.7) Glucose (Fingerstick) 160 mg/dL (70-99) 112 mg/dL (70-99) Laboratory Tests Test 03/25/17 07:57 Glucose (Fingerstick) 112 mg/dL (70-99) Medications Current Medications Morphine Sulfate 4 mg 1X ONCE IV Last administered on 03/23/17 08:06; Start 03/23/17 at 08:00; Stop 03/23/17 at 08:01; Status DC Ketorolac Tromethamine (Toradol) 30 mg 1X ONCE IV Last administered on 08:08; Start 03/23/17 at 08:00; Stop 03/23/17 at 08:01; Status DC Morphine Sulfate 2 mg 1X ONCE IV Last administered on 03/23/17 10:08; Start 03/23/17 at 09:30; Stop 03/23/17 at 09:31; Status DC Ondansetron HCl (Zofran) 4 mg PRN Q8HRS PRN IV NAUSEA/VOMITING; Start at 10:00; Stop 03/24/17 at 09:59; Status DC Morphine Sulfate 2 mg PRN Q2HR PRN IV PAIN Last administered on 03/23/17 22: 39; Start 03/23/17 at 10:00; Stop 03/24/17 at 09:59; Status DC Vitamin D (Vitamin D3) 1,000 unit DAILY PO Last administered on 03/25/17 08: 34; Start 03/23/17 at 14:30 Non-Formulary Medication 1,000 mg DAILY PO ; Start 03/24/17 at 09:00; Status UNV Ketorolac Tromethamine (Toradol) 30 mg PRN Q6HRS PRN IV PAIN Last administered on 03/23/17 14:19; Start 03/23/17 at 13:45; Stop 03/28/17 at 13:44 Oxycodone/ Acetaminophen (Percocet 5/325) 1 tab PRN Q4HRS PRN PO PAIN 5-7 Last administered on 03/25/17 08:35; Start 03/23/17 at 14:30 Oxycodone/ Acetaminophen (Percocet 10/325) 1 tab PRN Q4HRS PRN PO pain 8-10 Last administered on 03/25/17 04:07; Start 03/23/17 at 14:30 Cyclobenzaprine HCl (Flexeril) 10 mg Q6HRS PO Last administered on 03/25/17 04:06; Start 03/24/17 at 19:00 Gabapentin (Neurontin) 300 mg TID PO Last administered on 03/25/17 08:34; Start 03/23/17 at 21:00 Methylprednisolone (Medrol) 8 mg BID PO ; Start 03/23/17 at 09:00; Stop at 21:01; Status UNV Methylprednisolone (Medrol) 4 mg BIDPCLD PO ; Start 03/23/17 at 12:30; Stop at 17:31; Status UNV Methylprednisolone (Medrol) 4 mg TIDPC PO ; Start 03/24/17 at 08:30; Stop at 17:31; Status UNV Methylprednisolone (Medrol) 8 mg QHS PO ; Start 03/24/17 at 21:00; Stop at 21:01; Status UNV Methylprednisolone (Medrol) 4 mg QIDAFTMEAL PO ; Start 03/25/17 at 09:00; Stop 03/25/17 at 21:01; Status UNV Methylprednisolone (Medrol) 4 mg TID PO ; Start 03/26/17 at 09:00; Stop at 21:01; Status UNV Methylprednisolone (Medrol) 4 mg BID PO ; Start 03/27/17 at 09:00; Stop at 21:01; Status UNV Methylprednisolone (Medrol) 4 mg DAILY PO ; Start 03/28/17 at 09:00; Stop at 09:01; Status UNV Pantoprazole Sodium (Protonix) 40 mg DAILYAC PO Last administered on 08:34; Start 03/23/17 at 19:00 Diazepam (Valium) 5 mg 1X ONCE PO Last administered on 03/24/17 14:05; Start 03/24/17 at 09:00; Stop 03/24/17 at 09:01; Status DC Methylprednisolone (Medrol) 12 mg Q4H PO Last administered on 03/23/17 22:43 ; Start 03/23/17 at 19:00; Stop 03/23/17 at 23:01; Status DC Methylprednisolone (Medrol) BIDPCLD PO ; Start 03/23/17 at 12:30; Stop at 17:31; Status UNV Methylprednisolone (Medrol) 4 mg TIDPC PO Last administered on 03/24/17 17:05 ; Start 03/24/17 at 08:30; Stop 03/24/17 at 17:31; Status DC Methylprednisolone (Medrol) 8 mg QHS PO Last administered on 03/24/17 22:41; Start 03/24/17 at 21:00; Stop 03/24/17 at 21:01; Status DC Methylprednisolone (Medrol) 4 mg QIDAFTMEAL PO Last administered on 03/25/17 08:34; Start 03/25/17 at 09:00; Stop 03/25/17 at 21:01 Methylprednisolone (Medrol) 4 mg TID PO ; Start 03/26/17 at 09:00; Stop at 21:01 Methylprednisolone (Medrol) 4 mg BID PO ; Start 03/27/17 at 09:00; Stop at 21:01 Methylprednisolone (Medrol) 4 mg DAILY PO ; Start 03/28/17 at 09:00; Stop at 09:01 Active Scripts Active Reported Glucosamine (Glucosamine Sulfate 2KCL) 1,000 Mg Tablet 1,000 Mg PO DAILY Vitamin D (Cholecalciferol (Vitamin D3)) 1,000 Unit Capsule 1 Cap PO DAILY Vitals/I & O Vital Sign - Last 24 Hours 03/24/17 03/24/17 03/24/17 03/24/17 10:26 11:00 13:48 15:00 Temp 98.2 98.4 98.2 98.4 Pulse 92 65 Resp 18 22 20 20 B/P (MAP) 110/67 (81) 112/69 (83) Pulse Ox 96 98 O2 Delivery Room Air Room Air Room Air Room Air 03/24/17 03/24/17 03/24/17 03/24/17 18:42 19:00 20:00 20:01 Temp 98.2 98.2 Pulse 67 Resp 18 21 20 B/P (MAP) 141/72 (95) Pulse Ox 94 O2 Delivery Room Air Room Air Room Air Room Air 03/24/17 03/24/17 03/25/17 03/25/17 21:01 23:00 03:00 04:07 Temp 98.2 98.4 98.2 98.4 Pulse 64 65 Resp 20 19 22 20 B/P (MAP) 135/64 (87) 125/88 (100) Pulse Ox 98 99 O2 Delivery Room Air Room Air Room Air 03/25/17 03/25/17 07:00 08:35 Temp 97.6 97.6 Pulse 57 Resp 18 20 B/P (MAP) 151/91 (111) Pulse Ox 93 O2 Delivery Room Air Room Air Intake and Output 03/24/17 03/24/17 03/25/17 15:00 23:00 07:00 Intake Total 840 ml 850 ml 300 ml Output Total 600 ml 0 ml Balance 840 ml 250 ml 300 ml LEOPOLDO MCNEILL MD Mar 25, 2017 10:11
[2017-03-25] MEDS ORDERED: MAGNESIUM CITRATE 296 ML SOLUTION. PO PRN (10:15)
[2017-03-25 10:32] VITALS: BP 141/84
[2017-03-25] MEDS ORDERED: methylPREDNISolone ACETATE 80 MG/ML VIAL. ONE (13:28)
[2017-03-25] MEDS ORDERED: IOHEXOL 180 MG/ML 10 ML VIAL. ONE (13:28)
[2017-03-25] MEDS ORDERED: methylPREDNISolone ACETATE 40 MG/ML VIAL. ONE (13:28)
--- NOTE | 2017-03-25 13:48 | PDOC ---
PROGRESS NOTES Chief Complaint Chief Complaint Intractable back pain ASSESSMENT AND PLAN: 1. LBP: pain severe with movement still. MRI with mod severe stenoses at several levels as well as foraminal narrowing. injection today. cont adjunct rx 2. Morbid obesity: nutrition consult done 3. Dispo: hopefully improved sufficiently for D/C in AM; PT/OT History of Present Illness History of Present Illness pain unchanged post injection Vitals Vitals Vital Signs Date Time Temp Pulse Resp B/P (MAP) Pulse Ox O2 Delivery O2 Flow Rate FiO2 03/25/17 12:08 20 Room Air 03/25/17 10:32 98.3 74 141/84 (103) 92 98.3 Physical Exam General: Alert, Cooperative, No acute distress Heart: Regular rate Lungs: Clear Abdomen: Normal bowel sounds Extremities: No edema Skin: No rashes Labs LABS Laboratory Tests Test 03/25/17 07:57 03/25/17 11:10 Glucose (Fingerstick) 112 mg/dL (70-99) 133 mg/dL (70-99) Assessment and Plan Assessmemt and Plan Problems: CHASE NATH MD Mar 25, 2017 13:48
[2017-03-25 14:39] VITALS: BP 142/97
--- NOTE | 2017-03-25 16:41 | PDOC ---
SUBJECTIVE Subjective Low back and right leg pain OBJECTIVE Objective 67-year-old male with chronic back pain. He started having increasing lower back pain after a fall in December of this year, had gone through physical therapy with some help, had an MRI scan done and he was referred to the pain clinic for consideration of lumbar epidural steroid injection, but he did not go to as he admits the pain at that time is only 3/10. The patient started having increasing back pain starting on 03/20/2017, after he picked up heavy box. The patient admits burning pain over right thigh anterior lateral aspect. He required a cane or walker to get up, unable to walk for greater than 50 ft. Vital Signs Vital Signs Date Time Temp Pulse Resp B/P (MAP) Pulse Ox O2 Delivery O2 Flow Rate FiO2 03/25/17 15:30 18 Room Air 03/25/17 14:39 97.8 72 18 142/97 (112) 90 Room Air 97.8 03/25/17 14:30 18 Room Air 03/25/17 12:08 20 Room Air 03/25/17 10:32 98.3 74 18 141/84 (103) 92 Room Air 98.3 03/25/17 08:35 20 Room Air 03/25/17 08:00 Room Air 03/25/17 07:00 97.6 57 18 151/91 (111) 93 Room Air 97.6 03/25/17 04:07 20 Room Air 03/25/17 03:00 98.4 65 22 125/88 (100) 99 Room Air 98.4 03/24/17 23:00 98.2 64 19 135/64 (87) 98 Room Air 98.2 03/24/17 20:01 20 Room Air 03/24/17 20:00 Room Air 03/24/17 19:00 98.2 67 21 141/72 (95) 94 Room Air 98.2 03/24/17 18:42 18 Room Air I & O Intake and Output 03/25/17 06:59 Intake Total 1990 ml Output Total 600 ml Balance 1390 ml Intake Oral 1990 ml Output Urine Total 600 ml # Voids 2 PHYSICAL EXAM Physical Exam A&O , LE's DTR's = 1/4+, motor 3/5 rt; 5/5 lt. ASSESSMENT/PLAN Assessment/Plan MRI reviewed with ptFabricio DOMINGUEZ today Problems: COMMENT Lab Laboratory Tests Test 03/25/17 07:57 03/25/17 11:10 03/25/17 16:06 Glucose (Fingerstick) 112 mg/dL (70-99) 133 mg/dL (70-99) 116 mg/dL (70-99) ANGELIQUE VELEZ MD Mar 25, 2017 16:41
[2017-03-25 19:00] VITALS: BP 151/65
[2017-03-25 22:33] VITALS: BP 154/89
[2017-03-26 02:37] VITALS: BP 131/75
[2017-03-26] MEDS: CYCLOBENZAPRINE 10 MG TABLET. PO SCH ×4 (06:40→15:38)
[2017-03-26] MEDS: oxyCODONE/APAP 10/325 1 TAB TABLET PO PRN (06:41)
[2017-03-26 07:00] VITALS: BP 128/55
[2017-03-26] MEDS ORDERED: BISACODYL 5 MG TABLET.DR. PO SCH (09:00)
[2017-03-26] MEDS ORDERED: methylPREDNISolone 4 MG TABLET. PO SCH (09:00)
[2017-03-26] MEDS: GABAPENTIN 300 MG CAPSULE. PO SCH ×2 (09:36→15:38)
[2017-03-26] MEDS: CHOLECALCIFEROL (VITAMIN D3) 1,000 UNIT TABLET PO SCH (09:37)
[2017-03-26] MEDS: PANTOPRAZOLE 40 MG TABLET.DR. PO SCH (09:37)
[2017-03-26] MEDS: methylPREDNISolone 4 MG TABLET. PO SCH ×2 (09:37→15:38)
--- NOTE | 2017-03-26 10:12 | PDOC ---
PROGRESS NOTES Subjective Subjective He feels better but still concerned about some spikes in his back pain with movement. Objective Objective Vital Signs Date Time Temp Pulse Resp B/P (MAP) Pulse Ox O2 Delivery O2 Flow Rate FiO2 03/26/17 08:10 20 93 Room Air 03/26/17 07:00 97.5 59 128/55 (79) 97.5 Intake and Output 03/26/17 07:00 Intake Total 580 ml Balance 580 ml Intake Oral 580 ml # Voids 6 Physical Exam Physical Exam He is supine in bed and does not seem to be in any distress.He remains independent with his mobility at roller walker level. Assessment Assessment Problems Medical Problems: (1) Intractable back pain Status: Acute Plan Plan of [facility] when medically stable with out patient follow up in pain clinic.To try him with lumbar corset. Comment Review of Relevant I have reviewed the following items erin (where applicable) has been applied. Labs Laboratory Tests Test 03/25/17 07:57 03/25/17 11:10 03/25/17 16:06 03/25/17 20:59 Glucose (Fingerstick) 112 mg/dL (70-99) 133 mg/dL (70-99) 116 mg/dL (70-99) 148 mg/dL (70-99) Test 03/26/17 07:30 Glucose (Fingerstick) 124 mg/dL (70-99) Laboratory Tests Test 03/25/17 11:10 03/25/17 16:06 03/25/17 20:59 03/26/17 07:30 Glucose (Fingerstick) 133 mg/dL (70-99) 116 mg/dL (70-99) 148 mg/dL (70-99) 124 mg/dL (70-99) Medications Current Medications Morphine Sulfate 4 mg 1X ONCE IV Last administered on 03/23/17 08:06; Start 03/23/17 at 08:00; Stop 03/23/17 at 08:01; Status DC Ketorolac Tromethamine (Toradol) 30 mg 1X ONCE IV Last administered on 08:08; Start 03/23/17 at 08:00; Stop 03/23/17 at 08:01; Status DC Morphine Sulfate 2 mg 1X ONCE IV Last administered on 03/23/17 10:08; Start 03/23/17 at 09:30; Stop 03/23/17 at 09:31; Status DC Ondansetron HCl (Zofran) 4 mg PRN Q8HRS PRN IV NAUSEA/VOMITING; Start at 10:00; Stop 03/24/17 at 09:59; Status DC Morphine Sulfate 2 mg PRN Q2HR PRN IV PAIN Last administered on 03/23/17 22: 39; Start 03/23/17 at 10:00; Stop 03/24/17 at 09:59; Status DC Vitamin D (Vitamin D3) 1,000 unit DAILY PO Last administered on 03/26/17 09: 37; Start 03/23/17 at 14:30 Non-Formulary Medication 1,000 mg DAILY PO ; Start 03/24/17 at 09:00; Status UNV Ketorolac Tromethamine (Toradol) 30 mg PRN Q6HRS PRN IV PAIN Last administered on 03/23/17 14:19; Start 03/23/17 at 13:45; Stop 03/28/17 at 13:44 Oxycodone/ Acetaminophen (Percocet 5/325) 1 tab PRN Q4HRS PRN PO PAIN 5-7 Last administered on 03/25/17 14:30; Start 03/23/17 at 14:30 Oxycodone/ Acetaminophen (Percocet 10/325) 1 tab PRN Q4HRS PRN PO pain 8-10 Last administered on 03/26/17 06:41; Start 03/23/17 at 14:30 Cyclobenzaprine HCl (Flexeril) 10 mg Q6HRS PO Last administered on 03/26/17 06:40; Start 03/24/17 at 19:00 Gabapentin (Neurontin) 300 mg TID PO Last administered on 03/26/17 09:36; Start 03/23/17 at 21:00 Methylprednisolone (Medrol) 8 mg BID PO ; Start 03/23/17 at 09:00; Stop at 21:01; Status UNV Methylprednisolone (Medrol) 4 mg BIDPCLD PO ; Start 03/23/17 at 12:30; Stop at 17:31; Status UNV Methylprednisolone (Medrol) 4 mg TIDPC PO ; Start 03/24/17 at 08:30; Stop at 17:31; Status UNV Methylprednisolone (Medrol) 8 mg QHS PO ; Start 03/24/17 at 21:00; Stop at 21:01; Status UNV Methylprednisolone (Medrol) 4 mg QIDAFTMEAL PO ; Start 03/25/17 at 09:00; Stop 03/25/17 at 21:01; Status UNV Methylprednisolone (Medrol) 4 mg TID PO ; Start 03/26/17 at 09:00; Stop at 21:01; Status UNV Methylprednisolone (Medrol) 4 mg BID PO ; Start 03/27/17 at 09:00; Stop at 21:01; Status UNV Methylprednisolone (Medrol) 4 mg DAILY PO ; Start 03/28/17 at 09:00; Stop at 09:01; Status UNV Pantoprazole Sodium (Protonix) 40 mg DAILYAC PO Last administered on 09:37; Start 03/23/17 at 19:00 Diazepam (Valium) 5 mg 1X ONCE PO Last administered on 03/24/17 14:05; Start 03/24/17 at 09:00; Stop 03/24/17 at 09:01; Status DC Methylprednisolone (Medrol) 12 mg Q4H PO Last administered on 03/23/17 22:43 ; Start 03/23/17 at 19:00; Stop 03/23/17 at 23:01; Status DC Methylprednisolone (Medrol) BIDPCLD PO ; Start 03/23/17 at 12:30; Stop at 17:31; Status UNV Methylprednisolone (Medrol) 4 mg TIDPC PO Last administered on 03/24/17 17:05 ; Start 03/24/17 at 08:30; Stop 03/24/17 at 17:31; Status DC Methylprednisolone (Medrol) 8 mg QHS PO Last administered on 03/24/17 22:41; Start 03/24/17 at 21:00; Stop 03/24/17 at 21:01; Status DC Methylprednisolone (Medrol) 4 mg QIDAFTMEAL PO Last administered on 03/25/17 21:11; Start 03/25/17 at 09:00; Stop 03/25/17 at 21:01; Status DC Methylprednisolone (Medrol) 4 mg TID PO Last administered on 03/26/17 09:37; Start 03/26/17 at 09:00; Stop 03/26/17 at 21:01 Methylprednisolone (Medrol) 4 mg BID PO ; Start 03/27/17 at 09:00; Stop at 21:01 Methylprednisolone (Medrol) 4 mg DAILY PO ; Start 03/28/17 at 09:00; Stop at 09:01 Bisacodyl (Dulcolax Tab) 10 mg DAILY PO Last administered on 03/26/17 09:36; Start 03/26/17 at 09:00 Magnesium Citrate (Citroma) 296 ml PRN 1X PRN PO CONSTIPATION Last administered on 03/25/17 14:30; Start 03/25/17 at 10:15 Methylprednisolone Acetate (DEPO-Medrol 40MG VIAL) 40 mg STK-MED ONCE .ROUTE ; Start 03/25/17 at 13:28; Stop 03/25/17 at 13:29; Status DC Iohexol (Omnipaque 180 Mg/ml) 10 ml STK-MED ONCE .ROUTE ; Start 03/25/17 at 13: 28; Stop 03/25/17 at 13:29; Status DC Methylprednisolone Acetate (DEPO-Medrol 80MG VIAL) 80 mg STK-MED ONCE .ROUTE ; Start 03/25/17 at 13:28; Stop 03/25/17 at 13:29; Status DC Active Scripts Active Reported Glucosamine (Glucosamine Sulfate 2KCL) 1,000 Mg Tablet 1,000 Mg PO DAILY Vitamin D (Cholecalciferol (Vitamin D3)) 1,000 Unit Capsule 1 Cap PO DAILY Vitals/I & O Vital Sign - Last 24 Hours 03/25/17 03/25/17 03/25/17 03/25/17 10:32 12:08 14:30 14:39 Temp 98.3 97.8 98.3 97.8 Pulse 74 72 Resp 18 20 18 18 B/P (MAP) 141/84 (103) 142/97 (112) Pulse Ox 92 90 O2 Delivery Room Air Room Air Room Air Room Air 03/25/17 03/25/17 03/25/17 03/25/17 15:30 17:22 19:00 20:00 Temp 98.1 98.1 Pulse 67 Resp 18 18 19 B/P (MAP) 151/65 (93) Pulse Ox 93 O2 Delivery Room Air Room Air Room Air Room Air 03/25/17 03/26/17 03/26/17 03/26/17 22:33 02:37 06:41 07:00 Temp 98.1 97.6 97.5 98.1 97.6 97.5 Pulse 59 70 59 Resp 18 19 18 18 B/P (MAP) 154/89 (110) 131/75 (93) 128/55 (79) Pulse Ox 93 92 91 O2 Delivery Room Air Room Air Room Air Room Air 03/26/17 08:10 Resp 20 Pulse Ox 93 O2 Delivery Room Air Intake and Output 03/25/17 03/25/17 03/26/17 15:00 23:00 07:00 Intake Total 480 ml 100 ml Balance 480 ml 100 ml LEOPOLDO MCNEILL MD Mar 26, 2017 10:12
[2017-03-26 11:00] VITALS: BP 155/88
[2017-03-26] MEDS ORDERED: GABA300C8 PO (11:00)
[2017-03-26] MEDS ORDERED: METHYLNALTREXONE 12 MG/0.6 ML VIAL. SQ ONE (11:00)
[2017-03-26] MEDS ORDERED: OXYC1TAB7 PO (11:00)
[2017-03-26] MEDS ORDERED: CYCL10TA2 PO (11:00)
[2017-03-26] MEDS ORDERED: PANT40TA5 PO (11:00)
[2017-03-26] MEDS ORDERED: SENN1TAB21 PO (11:00)
[2017-03-26] MEDS ORDERED: DEXA4TAB PO (12:17)
[2017-03-26] MEDS: oxyCODONE/APAP 5/325 1 TAB TABLET PO PRN (15:39)
[2017-03-27] MEDS ORDERED: methylPREDNISolone 4 MG TABLET. PO SCH ×2 (09:00)
[2017-03-28] MEDS ORDERED: methylPREDNISolone 4 MG TABLET. PO SCH ×2 (09:00)
--- NOTE | 2017-03-28 18:39 | DS ---
DATE OF DISCHARGE: 03/26/2017 CHIEF COMPLAINT: Intractable back pain. HISTORY OF PRESENT ILLNESS: The patient is a 67-year-old morbidly obese gentleman in otherwise good state of health say for chronic back pain. He presented to the Emergency Room with acute exacerbation, barely being able to move. An MRI was obtained showing moderate severe stenoses at several levels as well as foraminal narrowing. Dr. Lennon was consulted for treatment. As conservative treatments with steroids, ice and narcotics did not improve his pain when ambulating, he was injected with steroids under fluoroscopy guidance on the . Pain was slowly improving over the next couple of days. With continuation of adjunct therapy, he was able to be discharged on the . PHYSICAL EXAMINATION: VITAL SIGNS: Blood pressure of 128/55, pulse 59, respiratory rate 20. No fevers. GENERAL: Morbidly obese, alert and oriented. HEENT: No icterus. NECK: Short. LUNGS: Clear. HEART: Regular rate and rhythm. ABDOMEN: Massively obese, positive bowel sounds. EXTREMITIES: No edema. DISCHARGE DIAGNOSIS: Sciatica, status post nerve root injection. DISCHARGE DISPOSITION: To home with services. DISCHARGE CONDITION: Improved. DISCHARGE MEDICATIONS: Please refer to MAR. DISCHARGE INSTRUCTIONS: The patient will follow up with Pain Clinic in 1-2 weeks and follow up with his PCP as well. greater than 30 minutes were spent in arranging discharge. CHASE NATH MD DR: UR/nts JOB#: [id number] / [id number] FELICIA Belcher MD MTDD
== END 2017-03-26 17:00 | disposition home or self-care (01) | DRG 552 ==
LOC: ER 06:49 → 5 NORTH 10:00 → 5 SOUTH 12:22
PROVIDERS: ADMIT Internal Medicine Hematology & Oncology; ATTEND Internal Medicine Hematology & Oncology
PROC: 3E0R33Z Introduction of Anti-inflammatory into Spinal Canal, Percutaneous Approach (ICD-10-PCS; principal; 2017-03-26)
PROC: 3E0R3BZ Introduction of Anesthetic Agent into Spinal Canal, Percutaneous Approach (ICD-10-PCS; 2017-03-26)
DX: M54.30 Sciatica, unspecified side (principal); E66.01 Morbid (severe) obesity due to excess calories; M54.16 Radiculopathy, lumbar region; G89.29 Other chronic pain; G60.0 Hereditary motor and sensory neuropathy; M48.061 Spinal stenosis, lumbar region without neurogenic claudication; Z68.38 Body mass index [BMI] 38.0-38.9, adult; Z91.81 History of falling
CPT/HCPCS: 36415; 62323; 72148; 80048; 80053; 82962; 85025; 96374; 96375; 96376; J1030; J1040; J1885; J2212; J2270; J7509; 99285-25

== ENCOUNTER → 2017-03-31 | Outpatient (CLI) | payer MEDICARE, BC, OTHER ==
[2017-03-26 11:00] VITALS: BP 155/88
[~2017-03-31] MED LIST: CHOL100013 PO; CYCL10TA2 PO; DEXA4TAB PO; GABA300C8 PO; GLUC100018 PO; IOHEXOL 180 MG/ML 10 ML VIAL. ONE; OXYC1TAB7 PO; PANT40TA5 PO; SENN1TAB21 PO; methylPREDNISolone ACETATE 40 MG/ML VIAL. ONE; methylPREDNISolone ACETATE 80 MG/ML VIAL. ONE
--- NOTE | 2017-03-31 14:54 | PAIN ---
DATE OF SERVICE: 03/31/2017 DIAGNOSIS: Lumbar radiculopathy with lumbar degenerative disk disease. HISTORY OF PRESENT ILLNESS: The patient is a 67-year-old male who returns for followup status post lumbar epidural steroid injection x 1. The patient reports about 50% improvement to 60% improvement in the low back, still some pain in the right leg; however, ____ from the medial anterior thigh to the knee. The patient reports it can be excruciating or a dull ache, mainly aching on and off, is not continuous as it was previously. The patient with increasing activity is somewhat better ease and comfort and sleeping better at night, but it did still awaken him with pain in the right leg over the past day or two. The patient is still walking with a cane, mostly in his right hand. Reports that his back is doing quite a bit better, but his right leg is still significantly painful. The patient reports pain is a 9 on a scale of 10 at its worst, 6 on average and 2 on a scale of 10 on its least and is a 5 today. The patient reports no new motor or sensory deficits, no new bowel or bladder incontinence or other complaints. PHYSICAL EXAMINATION: VITAL SIGNS: The patient's blood pressure is 144/87, pulse 68, respirations 20, temperature is 98.2 degrees Fahrenheit, height is 5 feet 7 inches, weight is 273 pounds. GENERAL: The patient is awake, alert, oriented, appropriate, has very pleasant demeanor. HEENT: Head shows normocephalic, atraumatic. Extraocular movements are intact and symmetrical. Oral cavity: Mucous membranes moist and pink. Dentition is intact. NECK: Shows anterior throat supple without palpable lymphadenopathy noted. Swallow reflex is symmetrical. CHEST: Shows normal with inspection. Breath sounds clear to auscultation bilaterally. HEART: Shows S1 and S2 clear. No murmurs auscultated. ABDOMEN: Soft, nontender, nondistended. No palpable organomegaly is noted. No rebound or guarding demonstrated. MUSCULOSKELETAL: Back shows spine grossly in the midline. Lumbar paraspinous musculature shows some symmetry with inspection, on palpation shows some moderate tenderness bilaterally, but only diffusely in the low lumbar distribution, only to a mild extent. No tenderness over the sacrum or sacroiliac regions or over the spinous processes. The patient has good rotational motion of lumbar spine, both laterally as well as extension and flexion without difficulty. The patient's lower extremities show deep tendon reflexes 1+ in the patellar and tendo calcaneus tendons. Motor exam is approximately 4 on a scale of 5 with right dorsiflexion and extension and 5/5 on the left and is true with quadriceps and hamstring flexion as well. Peripheral pulses are 1+ in the posterior tibia. No peripheral edema is noted. Options were discussed with the patient. The patient's old chart was reviewed as his current medication regimen updated. Current review of systems updated today as well. We will proceed with a second lumbar epidural steroid injection today with fluoroscopic guidance. Risks were again discussed including, but not limited to bleeding, infection, possibility of epidural hematoma, subsequent neurologic compromise, dural punctures, headaches, spinal cord and/or nerve damage, side effects of steroid medication and poor results regarding pain control. The patient understands and wished to proceed. The patient will return to clinic in approximately 2 weeks for followup, was counseled on return appointment, activity level and side effects to be aware of. DIAGNOSIS: Lumbar radiculopathy with lumbar degenerative disease. PROCEDURE: Lumbar epidural steroid injection in translaminar approach at L3-L4 level using C-arm fluoroscopic guidance under sterile prep and drape using local anesthetic. MEDICATION INJECTED: A total of 120 mg Depo-Medrol plus 10 mL of preservative free normal saline, 2 mL of Isovue for contrast. CONDITION AT DISCHARGE: Stable. The patient tolerated the procedure well, had no complications. ANGELIQUE VELEZ MD DR: MOHINI/bjorn JOB#: [id number] / [id number]
== END | disposition home or self-care (01) ==
LOC: PNCL 10:56
PROVIDERS: ATTEND Anesthesiology
DX: M51.16 Intervertebral disc disorders with radiculopathy, lumbar region (principal); G62.9 Polyneuropathy, unspecified; Z98.49 Cataract extraction status, unspecified eye; E66.9 Obesity, unspecified; M19.90 Unspecified osteoarthritis, unspecified site; Z85.828 Personal history of other malignant neoplasm of skin
CPT/HCPCS: 62323; J1030; J1040

== ENCOUNTER → 2017-04-14 | Outpatient (CLI) | payer MEDICARE, BC, OTHER ==
[2017-03-26 11:00] VITALS: BP 155/88
--- NOTE | 2017-04-14 12:13 | PAIN ---
DATE OF SERVICE: 04/14/2017 DIAGNOSES: Lumbar radiculopathy with lumbar degenerative disk disease. HISTORY OF PRESENT ILLNESS: The patient is a 67-year-old male who returns for followup status post lumbar epidural steroid injections x 2. The patient reports only about 50% improvement overall, but still with significant pain walking more than about 100 yards, has extreme pain at that time with standing and walking for that time. When he sits down after about 5 minutes, the pain decreases to the point where it is almost gone. He stands up and the whole process repeats consistent with a picture of neurogenic claudication. The patient reports the pain is a 7 on a scale of 10 at its worst, 5 on average, 1 at least and 5 today. The patient reports it is sharp alternating with dull, radiating into the right leg, mostly in the lateral and anterior aspect of the thigh to the knee with significant pain in the medial aspect of the thigh in the right knee with walking and standing is noted. The patient reports it awakens him from sleep, but only occasionally, not every night. The patient has difficulty driving. It is in his right leg and somewhat frustrated that the persistence of his pain has remained. The patient reports no new motor or sensory deficits, no new bowel or bladder incontinence. No other complaints. PHYSICAL EXAMINATION: VITAL SIGNS: The patient's blood pressure is 145/66, pulse 76, respirations 18, temperature 98.3 degrees Fahrenheit, height is 5 feet 7 inches, weight is 273 pounds. GENERAL: The patient is awake, alert, oriented, appropriate, very pleasant demeanor. HEENT: Head shows normocephalic, atraumatic. Extraocular movements are intact, symmetrical. Oral cavity: Mucous membranes moist and pink. Dentition is intact. NECK: Shows anterior throat supple without palpable lymphadenopathy noted. Swallow reflex symmetrical. CHEST: Shows normal on inspection. Breath sounds are clear to auscultation bilaterally. HEART: Shows S1, S2 clear. ABDOMEN: Obese, soft, nontender, nondistended. No palpable organomegaly. There is no rebound or guarding demonstrated. BACK: Shows spine grossly in the midline. Normal appearing thoracic kyphosis and lumbar lordotic curvature. Lumbar paraspinous muscle shows some moderate tenderness bilaterally with palpation, but without radiation, without trigger points, no tenderness over the spinous processes, sacrum or sacroiliac regions. The patient has good rotational motion of lumbar spine, both laterally as well as extension and flexion without significant difficulty. EXTREMITIES: Lower extremities show deep tendon reflexes 1+ in the patellar and tendo calcaneus tendons. Motor exam is approximately 4 on a scale of 5 on the right, 5/5 on the left with dorsiflexion, extension, quads and hamstring flexion. Peripheral pulses 1+ bilaterally in the posterior tibial and dorsalis pedis pulses. No peripheral edema is noted. No clubbing, no cyanosis. Options were discussed with the patient. The patient's old chart, reviewed his current medication regimen updated. Current review of systems updated today as well. We will proceed with a third in the series of lumbar epidural steroid injection with fluoroscopic guidance. Risks were again discussed including, but not limited to bleeding, infection, possibility of epidural hematoma, subsequent neurologic compromise, dural puncture, headaches, spinal cord and/or nerve damage, side effects of steroid medication and poor results regarding pain control. The patient understands and wished to proceed. The patient to return to clinic in approximately 2 weeks for followup, was counseled on return appointment, activity level and side effects to be aware of. DIAGNOSIS: Lumbar radiculopathy with lumbar degenerative disk disease. PROCEDURE: Lumbar epidural steroid injection, translaminar approach at L3-L4 level using C-arm fluoroscopic guidance under sterile prep and drape using local anesthetic. Medication injected a total of 120 mg Depo-Medrol plus 10 mL preservative-free normal saline and 2 mL of Isovue contrast. CONDITION AT DISCHARGE: Stable. The patient tolerated procedure well, had no complications. ANGELIQUE VELEZ MD DR: MOHINI/bjorn JOB#: [id number] / [id number]
== END | disposition home or self-care (01) ==
LOC: PNCL 09:46
PROVIDERS: ATTEND Anesthesiology
DX: M51.16 Intervertebral disc disorders with radiculopathy, lumbar region (principal); E66.9 Obesity, unspecified; M19.91 Primary osteoarthritis, unspecified site; Z98.890 Other specified postprocedural states
CPT/HCPCS: 62323; J1030; J1040

== ENCOUNTER → 2017-05-01 | Outpatient (CLI) | payer MEDICARE, BC, OTHER ==
[2017-05-12 13:52] LABS: T-SPOT TB TEST(OXFORD) SEE SEPARATE REPORT
== END | disposition home or self-care (01) ==
LOC: LAB 12:29
DX: L08.9 Local infection of the skin and subcutaneous tissue, unspecified (principal)
CPT/HCPCS: 36415; 86481

== ENCOUNTER → 2017-07-20 | Outpatient (CLI) | payer MEDICARE, BC, OTHER | END | disposition home or self-care (01) | LOC: PNCL 09:05 | DX: M54.16 Radiculopathy, lumbar region (principal); M51.36 Other intervertebral disc degeneration, lumbar region | CPT/HCPCS: G0463 ==

== ENCOUNTER → 2021-06-25 | Outpatient (CLI) | payer MEDICARE, BC, OTHER ==
[2017-04-30 14:38] VITALS: BP 136/76
[~2021-06-25] MED LIST changes: +ACET500T68 PO; +AMLO-187 PO; +CYCL10TA19 PO; -CYCL10TA2 PO; +GABA300C18 PO; -GABA300C8 PO; -IOHEXOL 180 MG/ML 10 ML VIAL. ONE; +MULT-245 PO; -PANT40TA5 PO; +PANT40TA77 PO; +RIVA20TA2 PO; -SENN1TAB21 PO; +SENN1TAB62 PO; -methylPREDNISolone ACETATE 40 MG/ML VIAL. ONE; -methylPREDNISolone ACETATE 80 MG/ML VIAL. ONE
--- NOTE | 2021-06-25 11:05 | PDOC1 ---
INITIAL PAIN CONSULT DATE OF SERVICE: DOS: DATE: 06/25/21 TIME: 10:56 CHIEF COMPLAINT: Chief Complaint: Low back and right lower extremity pain HISTORY OF PRESENT ILLNESS: 71-year-old male presents with history of pain low back right lower extremity for many years but worse over the past 1 year or so not result of any specific injury or accident he is aware of but significant pain in the low back right lower extremity with activity walking standing getting up from seated position better with sitting or laying down reports generally wakes him from sleep about once or twice a night only over the past few months patient reports no bowel or bladder incontinence reports does affect his ability to walk however with significant fatigability in the right lower extremity but not the left patient reports he is using a cane and does have that with him today patient reports she has been doing stretching strength exercise at home in the past has had physical therapy which is been helpful but only temporarily also some chiropractic treatment in the past and exercise ongoing patient reports no long-term improvement however. Patient reports disability rating from 0-10 10 being the worst is a 5-7 family home responsibilities 5-8 with recreation 2-3 with social activity 3-4 self-care and 4 with life-support activity specially difficulty with sleeping. Patient had an MRI scan which is dated from 2016 showing multilevel lumbar spinal canal stenosis most pronounced at L3-4 with severe stenosis L4-5 shows moderate diffuse disc bulge as well with moderate spinal canal stenosis and superimposed central disc protrusion moderate right to severe left lateral recess stenosis L5-S1 shows severe facet arthrosis no definite spinal canal stenosis but moderate bilateral lateral recess stenosis moderate to severe right and severe left neuroforaminal stenosis as well. Patient reports no overt motor loss but significant fatigability with the right lower extremity with ambulation and standing. PAST MEDICAL HISTORY: PMH: Arthritis, hypertension, shortness of breath, basal cell carcinoma PREVIOUS SURGERIES: Past Surgical Hx: Bilateral cataract extraction, fractured nose reduction, tonsillectomy, bilateral knee scopes, superficial sebaceous cysts removed CURRENT MEDICATIONS: Current Meds: Active Scripts Medications Dose Route/Sig Max Daily Dose Days Date Category Xarelto (Rivaroxaban) 20 Mg Tablet 20 Mg PO DAILY 07/20/17 Reported Glucosamine (Glucosamine Sulfate 2KCL) 1,000 Mg Tablet 1,000 Mg PO DAILY 03/23/17 Reported Vitamin D (Cholecalciferol (Vitamin D3)) 1,000 Unit Capsule 1 Cap PO DAILY 03/23/17 Reported ALLERGIES; Allergies: Coded Allergies: No Known Drug Allergies (Unverified , 03/23/17) FAMILY HISTORY: Family Hx: No major medical problems or conditions that he is aware of. SOCIAL HISTORY: Social Hx: Patient drinks alcohol about 1 or 2 drinks a week does not smoke not use any illegal illicit or recreational drugs is lives with his spouse lives locally in [facility] and is currently retired. REVIEW OF SYSTEMS: ROS: Positive for those items mentioned in history of present illness, all systems are reviewed, otherwise negative ,and are complete full and well-documented on patient's chart. PHYSICAL EXAM: VS: Blood pressure 142/86 pulse 71 respirations 18 temperature 90.3 F height 5 feet 6 inches weight 282 pounds PE: PHYSICAL EXAMINATION: GENERAL: The patient is awake, alert, oriented, appropriate, very pleasant in demeanor, patient companied by his . HEENT: Shows normocephalic, atraumatic. Extraocular movements are intact and symmetrical. Oral cavity: Mucous membranes moist and pink. NECK: Shows anterior throat supple without palpable lymphadenopathy noted. Swallow reflex symmetrical. CHEST: Shows normal on inspection. Breath sounds are clear bilaterally, distant but no rales rhonchi or wheezes auscultated. HEART: Shows S1, S2 clear. No murmurs auscultated. ABDOMEN: Soft, nontender, nondistended. No palpable organomegaly is noted. BACK: Shows spine grossly in the midline. Normal-appearing cervical lordotic curvature. There is moderately increased thoracic kyphosis, some flattening of the lumbar lordotic curvature. Lumbar paraspinous muscles show symmetrical on inspection, on palpation shows some moderate tenderness diffusely throughout the upper, middle and lower distribution of the paraspinous muscles bilaterally and into the lower thoracic paraspinous musculature, firm and tender, but without specific trigger points, without radiation of pain. The patient has good rotational motion of the lumbar spine, both laterally as well as extension and flexion without any significant difficulty. No tenderness over the spinous processes, sacrum or sacroiliac regions. EXTREMITIES: Lower extremities show deep tendon reflexes 1 to in the patellar and tendo calcaneus tendons. Motor exam is 4 on a scale of 5 with right dorsiflexion, extension, quadriceps and hamstring flexion and 5/5 on the left. Peripheral pulses are 1+ posterior tibial. 1+ peripheral edema is noted bilaterally in the ankles extending one third distal to the knee on the anterior tibia. Lower extremities are warm and dry to touch, equal in color and appearance. Straight leg raise noted to be positive on the right about 35 degrees, left side is negative. Gaenslen's and Du's maneuvers are negative bilaterally. The patient is able to stand, has difficulty trying to stand on his toes and is walking with a cane in his left hand and has a significant favoring gait favoring the right lower extremity with ambulation. SKIN: Shows warm and dry, good turgor. No edema. No sores, rashes or bruising throughout. IMPRESSION: Impression: 71-year-old male with long history low back right lower extremity pain in a radicular fashion MRI scan lumbar spine as noted Arthritis Hypertension Shortness of breath Plan: Options were discussed with the patient and patient spouse who accompanied him to his visit today. We discussed conservative medical management continued physical therapies and interventional techniques. Patient would like to pursue interventional techniques, as he is done well with these in the past. We di scussed a lumbar epidural steroid injections description as well as anatomical models to describe the procedure. Patient is taking Xarelto and has been off of this now for 2 days on his own accord, we contacted his primary care physician who is prescribing the Xarelto for him and cleared him to be off of this for another 24 hours and patient will return for lumbar epidural steroid injection at that time. ANGELIQUE VELEZ MD Jun 25, 2021 11:05
== END | disposition home or self-care (01) ==
LOC: PNCL 09:52
PROVIDERS: ATTEND Anesthesiology
DX: M54.50 Low back pain, unspecified (principal); M79.604 Pain in right leg; M19.90 Unspecified osteoarthritis, unspecified site; I10 Essential (primary) hypertension; Z79.899 Other long term (current) drug therapy; Z98.890 Other specified postprocedural states
CPT/HCPCS: 99214; G0463

== ENCOUNTER → 2021-06-26 | Outpatient (CLI) | payer MEDICARE, BC, OTHER ==
[2017-04-30 14:38] VITALS: BP 136/76
[~2021-06-26] MED LIST changes: +DEXAMETHASONE PRES.FREE 10 MG/ML VIAL. ONE; +IOHEXOL 180 MG/ML 10 ML VIAL. ONE
--- NOTE | 2021-06-26 11:08 | PDOC ---
Progress Note - Pain Clinic Date of Service: DOS: DATE: 06/26/21 TIME: 11:05 Diagnosis: Dx: Lumbar radiculopathy with lumbar degenerative disc disease History or Present Illness: HPI: 71-year-old male returns after clearance to hold his Xareldarren has been off of it now for 3days total we have contacted his primary care physician giving him clearance yesterday to hold this so he had been off of it for 2 days already with pain now in the low back and the right lower extremity as previously patient reports a 7 on scale 10 at its worst for an average 1 its least is a 4 today patient reports dull constant worse with walking standing change positions better with sitting or laying down patient reports no loss of motor function but significant fatigability the right lower extremity with the posterior gluteus lateral thigh anterior thigh medial thigh patient reports becoming this is noticeable with walking standing as it is with sitting if it is prolonged greater than 30 minutes of sitting. Patient reports it wakes him from sleep about every 4-5 hours at night as well. Patient reports no bowel or bladder incontinence. Physical Exam: VS: Blood pressure is 150/83 pulse 69 respirations 18 temperature 98.2 F height is 5 feet 6 inches weight is 282 pounds PE: PHYSICAL EXAMINATION: GENERAL: The patient is awake, alert, oriented, appropriate, very pleasant in demeanor HEENT: Shows normocephalic, atraumatic. Extraocular movements are intact and symmetrical. NECK: Shows anterior throat supple without palpable lymphadenopathy noted. Swallow reflex symmetrical. CHEST: Shows normal on inspection. Breath sounds are clear bilaterally. HEART: Shows S1, S2 clear. No murmurs auscultated. ABDOMEN: Soft, nontender, nondistended. No palpable organomegaly is noted. BACK: Shows spine grossly in the midline. Normal-appearing cervical lordotic curvature. There is moderately increased thoracic kyphosis, some moderate flattening of the lumbar lordotic curvature. Lumbar paraspinous muscles show s ymmetrical on inspection, on palpation shows some moderate tenderness diffusely throughout the upper, middle and lower distribution of the paraspinous muscles, but without specific trigger points, without radiation of pain. The patient has good rotational motion of the lumbar spine, both laterally as well as extension and flexion without significant difficulty. EXTREMITIES: Lower extremities show deep tendon reflexes 1+ in the patellar and tendo calcaneus tendons. Motor exam is 4 on a scale of 5 with right dorsiflexion, extension, quadriceps and hamstring flexion and 5/5 on the left. Peripheral pulses are 1+ posterior tibial. No peripheral edema is noted bilaterally. Lower extremities are warm and dry. SKIN: Shows warm and dry, good turgor. No edema. No sores, rashes or bruising throughout. Procedure: Procedure: Options discussed with the patient. Patient is alert with use of current medication regimen updated current review of systems updated today as well. We will proceed with a lumbar epidural steroid injection today with fluoroscopic guidance. Risks were discussed including but not limited to: Bleeding, infection, possibility of epidural hematoma and subsequent neurological compromise, dural puncture, headaches, spinal cord and/or nerve damage, side effects of steroid medication, and poor results regarding pain control. Patient understands and wished to proceed. Patient will return to the clinic in approximately 2 weeks for follow-up, was counseled as to return appointment, activity level, and side effect to be aware of. Patient will restart Xarelto tomorrow June 27, 2021. Medication Injected: Med Injected: Procedure is lumbar epidural steroid injection under local anesthetic using sterile prep and drape at the L3-4 level using C-arm fluoroscopic guidance in both AP and lateral views medications injected is 120 mg Depo-Medrol +10mL preservative-free normal saline and 2 mL contrast- condition at discharge is stable patient tolerated procedure well had no complications. Condition at Discharge: Condition at Discharge: Condition at discharge stable, paced tolerated procedure well and had no complications. ANGELIQUE VELEZ MD Jun 26, 2021 11:08
--- NOTE | 2021-06-26 11:09 | PDOC4 ---
Procedure Note: ICD 10 Code: ICD 10 Code: M54.16 M51.36 Procedure Note: Patient was consented for lumbar epidural steroid injection with fluoroscopic guidance. Risks were discussed including but not limited to: Bleeding, infection, possibility of epidural hematoma and subsequent neurological compromise, dural puncture, headaches, spinal cord and/or nerve damage, side effects of steroid medication, and poor results regarding pain control. Patient understands and wished to proceed. Procedure is lumbar epidural steroid injection under local anesthetic using sterile prep and drape at the L3-4 level using C-arm fluoroscopic guidance in both AP and lateral views medications injected is 120 mg Depo-Medrol +10mL preservative-free normal saline and 2 mL contrast- condition at discharge is stable patient tolerated procedure well had no complications. ANGELIQUE VELEZ MD Jun 26, 2021 11:09
== END | disposition home or self-care (01) ==
LOC: PNCL 09:51
PROVIDERS: ATTEND Anesthesiology
DX: M51.16 Intervertebral disc disorders with radiculopathy, lumbar region (principal); G47.30 Sleep apnea, unspecified; E66.9 Obesity, unspecified; M19.90 Unspecified osteoarthritis, unspecified site; Z85.828 Personal history of other malignant neoplasm of skin; Z79.899 Other long term (current) drug therapy; Z98.890 Other specified postprocedural states
CPT/HCPCS: 62323; J1100; Q9965

== ENCOUNTER → 2021-07-17 | Outpatient (CLI) | payer MEDICARE, BC, OTHER ==
[2017-04-30 14:38] VITALS: BP 136/76
[~2021-07-17] MED LIST changes: +BUPIVACAINE MPF 0.25% 10 ML VIAL. ONE; -IOHEXOL 180 MG/ML 10 ML VIAL. ONE
--- NOTE | 2021-07-17 10:09 | PDOC ---
Progress Note - Pain Clinic Date of Service: DOS: DATE: 07/17/21 TIME: 10:04 Diagnosis: Dx: Lumbar radiculopathy with lumbar degenerative disease Myofascial pain History or Present Illness: HPI: 71-year-old male returns in follow-up status post lumbar epidural steroid inje ction x1. Patient reports 100% improvement in his low back and right lower extremity pain is very pleased with his progress has been increase his activities greater ease and comfort during greater distance walking doing household activities travel greater ease and cover sleeping better at night patient reports no bowel or bladder incontinence or sensory deficit still some fatigue in the right lower extremity but much better patient is very pleased his main complaint today is right shoulder pain he was stacking some boxes up in a high shelf and has some significant pain in the lateral aspect of the shoulder. Patient reports this pain is a 3 on a scale of 10 at its worst 2-3 on average 1 distillation is a 3 today patient reports constant aching worse with activity reaching or with weightbearing and reaching especially forward and over his head patient reports that generally does not awaken from sleep at night but occasionally it has over the last week or so. Patient reports no loss of motor function but significant pain in the lateral shoulder with weightbearing and reaching forward and outward. Physical Exam: VS: Blood pressure is 141/82 pulse 76 respirations 18 temperature 98.2 F height is 5 foot 6 inches weight is 288 pounds. PE: PHYSICAL EXAMINATION: GENERAL: The patient is awake, alert, oriented, appropriate, very pleasant and demeanor, patient accompanied by his HEENT: Shows normocephalic, atraumatic. Extraocular movements are intact and symmetrical. Oral cavity: Mucous membranes moist and pink. NECK: Shows anterior throat supple without palpable lymphadenopathy noted. Swallow reflex symmetrical. CHEST: Shows normal on inspection. Breath sounds are clear bilaterally, distant but no rales or rhonchi. HEART: Shows S1, S2 clear. No murmurs auscultated. ABDOMEN: Soft, nontender, nondistended, obese. No palpable organomegaly is noted. BACK: Shows spine grossly in the midline. Normal-appearing cervical lordotic curvature. There is increased thoracic kyphosis, some flattening of the lumbar lordotic curvature. Lumbar paraspinous muscles show symmetrical on inspection, on palpation shows some moderate tenderness diffusely throughout the upper, middle and lower distribution of the paraspinous muscles without specific trigger points, without radiation of pain. The patient has good rotational motion of the lumbar spine, both laterally as well as extension and flexion without significant difficulty. No tenderness over the spinous processes, sacr um or sacroiliac regions. EXTREMITIES: Lower extremities show deep tendon reflexes 1 in the patellar and tendo calcaneus tendons. Motor exam is 4 on a scale of 5 with right dorsiflexion, extension, quadriceps and hamstring flexion and 5/5 on the left. Peripheral pulses are 1+ to posterior tibial. No peripheral edema is noted bilaterally. Lower extremities are warm and dry to touch, equal in color and appearance. Upper extremities show deep tendon reflexes 2+ in the biceps triceps tendons, right shoulder show significant tenderness over the inferior aspect of the insertion site of the right deltoid very firm ropelike musculature in the inferior aspect of the lateral deltoid no tenderness on the anterior deltoid or posterior deltoid no radiation of pain. Patient shows good rotation of motion both abduction as well as forward and rearward reaching some significant tenderness with resistance and reduction at 45 degrees and 90 degrees on the right side only. The left side is nontender with full rotation motion of the shoulder. SKIN: Shows warm and dry, good turgor. No edema. No sores, rashes or bruising throughout. Procedure: Procedure: Options were discussed with patient. Patient reviews his current medication regimen updated her review systems updated today as well. We will proceed with a trigger point injection in the right deltoid, wrist were discussed including but not limited to bleeding infection possibility of intravascular ejection sequela spread of local anesthetic and numbness side effects steroid medication and portals regarding pain control. Patient understands wished to proceed. Pat ient return to clinic in approximately 2 weeks for follow-up, was counseled as to return appointment, Activ[employer], and side effects to be aware of. Medication Injected: Med Injected: In sitting position under sterile prep and drape patient's right deltoid was prepped and trigger point identified at the inferior aspect of the lateral deltoid using a 25-gauge needle after negative aspiration a total of 2 cc 0.25% ropivacaine and total of 10 mg of Decadron were injected after negative aspiration. Patient tolerated the procedure well had no complications. Condition at Discharge: Condition at Discharge: Patient discharges stable, patient tolerated procedure well and had no complications. ANGELIQUE VELEZ MD Jul 17, 2021 10:09
--- NOTE | 2021-07-17 10:10 | PDOC4 ---
Procedure Note: ICD 10 Code: ICD 10 Code: M60.89 Procedure Note: Patient was consented for right deltoid trigger point injection. Risks discussed including but not limited to bleeding infection possibility of intravascular injection sequelae spread of local acetic numbness side effects of steroid medication portals regarding pain control. Patient understands wished to proceed. In sitting position under sterile prep and drape patient's right deltoid was prepped and trigger point identified at the inferior aspect of the lateral deltoid using a 25-gauge needle after negative aspiration a total of 2 cc 0.25% ropivacaine and total of 10 mg of Decadron were injected after negative aspiration. Patient tolerated the procedure well had no complications. ANGELIQUE VELEZ MD Jul 17, 2021 10:10
== END | disposition home or self-care (01) ==
LOC: PNCL 09:00
PROVIDERS: ATTEND Anesthesiology
DX: M79.18 Myalgia, other site (principal); M51.16 Intervertebral disc disorders with radiculopathy, lumbar region; E66.9 Obesity, unspecified; G47.30 Sleep apnea, unspecified; M19.90 Unspecified osteoarthritis, unspecified site; Z85.828 Personal history of other malignant neoplasm of skin; Z79.899 Other long term (current) drug therapy; Z98.890 Other specified postprocedural states
CPT/HCPCS: 20552; J1100; J3490

== ENCOUNTER → 2021-08-22 | Outpatient (CLI) | payer MEDICARE, BC, OTHER ==
[2017-04-30 14:38] VITALS: BP 136/76
--- NOTE | 2021-08-22 08:36 | PDOC ---
Progress Note - Pain Clinic Date of Service: DOS: DATE: 08/22/21 TIME: 08:30 Diagnosis: Dx: Myofascial pain Lumbar radiculopathy with lumbar degenerative disc disease History or Present Illness: HPI: 71-year-old male returns for follow-up status post lumbar epidural steroid injection as well as previous trigger points. Patient reports about 90% improvement with each his main complaint is right shoulder pain worse with repetitive motions lifting reaching and abduction of the right arm. Patient reports no recent injury or accident is becoming difficult to sleep on his right side the pain is there on and off with activity again with repetitive motions and abduction of the right arm patient reports a 6 on scale 10 is worse over the past week for an average to its least and is a 4 today patient ports aching sharp and dull alternating can be constant and radiating at the lateral aspect of the arm to the elbow but not further. Patient reports no loss of motor function but significant fatigability and difficulty with reaching his arm over his head without significant pain. Physical Exam: VS: Blood pressure 151/95 pulse 93 respirations 18 temperature 97.6 height is 5 foot 6 inches, patient weight is 285 pounds. PE: PHYSICAL EXAMINATION: GENERAL: The patient is awake, alert, oriented, appropriate, very pleasant in demeanor HEENT: Shows normocephalic, atraumatic. Extraocular movements are intact and symmetrical. NECK: Shows anterior throat supple without palpable lymphadenopathy noted. Swallow reflex symmetrical. CHEST: Shows normal on inspection. Breath sounds are clear bilaterally. HEART: Shows S1, S2 clear. No murmurs auscultated. ABDOMEN: Soft, nontender, nondistended. No palpable organomegaly is noted. BACK: Shows spine grossly in the midline. Normal-appearing cervical lordotic curvature. There is slightly increased thoracic kyphosis, some minor flattening of the lumbar lordotic curvature. Lumbar paraspinous muscles show symmetrical on inspection, on palpation shows some moderate tenderness diffusely throughout the upper, middle and lower distribution of the paraspinous muscles, but without specific trigger points, without radiation of pain. The patient has good rotational motion of the lumbar spine, both laterally as well as extension and flexion without significant difficulty. EXTREMITIES: Lower extremities show deep tendon reflexes 1 in the patellar and tendo calcaneus tendons. Motor exam is 4 on a scale of 5 with right dorsiflexion, extension, quadriceps and hamstring flexion and 4/5 on the left. Peripheral pulses are 1+ posterior tibial. No peripheral edema is noted bilaterally. Lower extremities are warm and dry to touch, equal in color and appearance. 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 Patient's right deltoid shows significant tenderness with palpation in the anterior and lateral aspect of the deltoid musculature very firm ropelike musculature throughout the lateral and anterior aspect of the deltoid musculature also into the insertion on the humerus at the deltoid as well. No radiation is demonstrated with palpation. Patient has good rotational motion but significant tenderness with abduction of the right shoulder and resistance at 90 degrees but without loss of strength. SKIN: Shows warm and dry, good turgor. No edema. No sores, rashes or bruising throughout. Procedure: Procedure: Options were discussed with the patient. Patient's old chart was reviewed his current medication regimen updated current review of systems updated today as well. We will proceed with trigger point injections of the right anterior and lateral aspect of the deltoid musculature. Risks are discussed including but not limited to bleeding infection stability intravascular injection sequelae spread local anesthetic numbness side effects steroid medication portals regarding pain control. Patient understands wished to proceed. Patient return to clinic in approximately 4 weeks for follow-up, was counseled as to return appointment, activity level, and side effects to be aware of. Medication Injected: Med Injected: Patient seen position under sterile prep and drape right deltoid was identified and trigger points identified using a 25-gauge needle were injected after negative aspiration each injection site for a total of 4 injections with 4 cc 0.25% bupivacaine as well as a total of 10 mg dexamethasone. Patient tolerated the procedure well and had no complications. Condition at Discharge: Condition at Discharge: Condition at discharge stable, patient tolerated procedure well had no complications. ANGELIQUE VELEZ MD Aug 22, 2021 08:36
--- NOTE | 2021-08-22 08:37 | PDOC4 ---
Procedure Note: ICD 10 Code: ICD 10 Code: M60.89 Procedure Note: Patient was consented for trigger point injections right anterior and lateral deltoid. Risk discussed include but not limited to bleeding infection possibility of intravascular injection sequelae spread local anesthetic numbness side effects steroid medication as well as poor results regarding pain control. Patient understands and wishes to proceed. Patient seen position under sterile prep and drape right deltoid was identified and trigger points identified using a 25-gauge needle were injected after negative aspiration each injection site for a total of 4 injections with 4 cc 0.25% bupivacaine as well as a total of 10 mg dexamethasone. Patient tolerated the procedure well and had no complications. ANGELIQUE VELEZ MD Aug 22, 2021 08:37
== END | disposition home or self-care (01) ==
LOC: PNCL 07:57
PROVIDERS: ATTEND Anesthesiology
DX: M79.18 Myalgia, other site (principal); M51.16 Intervertebral disc disorders with radiculopathy, lumbar region; G47.30 Sleep apnea, unspecified; E66.9 Obesity, unspecified; M19.90 Unspecified osteoarthritis, unspecified site; Z79.899 Other long term (current) drug therapy; Z98.890 Other specified postprocedural states; Z85.828 Personal history of other malignant neoplasm of skin
CPT/HCPCS: 20552; J1100; J3490